=== PATIENT | male | born 1960 | race Caucasian/White ===

== ENCOUNTER 2020-12-04 12:21 | Emergency (ER) | payer OTHER, SELFPAY ==
--- NOTE | 2020-12-04 12:27 | ECG_ITS ---
Test Reason : CHEST PAIN Blood Pressure : / mmHG Vent. Rate : 064 BPM Atrial Rate : 064 BPM P-R Int : 150 ms QRS Dur : 090 ms QT Int : 420 ms P-R-T Axes : 003 -24 002 degrees QTc Int : 433 ms Normal sinus rhythm Normal ECG When compared with ECG of 12-MAY-2002 03:02, No significant change was found Referred By: Boy Yi Electronically Signed By:TABBY GARRIDO
--- NOTE | 2020-12-04 12:42 | ED_ITS ---
HPI - Chest Pain General Chief Complaint: Chest Pain Stated Complaint: chest pain Time Seen by Provider: 12/04/20 12:41 Source: patient Mode of arrival: ambulatory Limitations: no limitations History of Present Illness HPI narrative: 60-year-old male with a past medical history depression and high cholesterol here with complaints of chest pain since last night. He tells me he has had intermittent episodes of chest pain which occurred at rest and are not associated with any shortness of breath, cough, dizziness, diaphoresis or nausea. He tells me it feels like a tickle or pension the left side of his chest which occurs for several seconds and then self-resolved. It is associated with some anxiety. Patient may get several episodes last night around 10:00 o'clock and the continued for about 2 hours he was able to fall sleep. This morning when he woke up he noticed additional episodes and that is when he brought himself to the emergency department. MD complaint: chest pain Onset (ago): hour(s) (>24 hrs) Timing of current episode: episodic Onset: during rest Pain location: left chest Pain radiation: none Severity: mild Quality: other ( tickle pinch ) Relieving factors: nothing Exacerbating factors: nothing Treatment prior to arrival: none Related Data Previous Rx's Medication Instructions Recorded atorvastatin 20 mg tablet 20 mg PO BEDTIME 90 Days #90 tab 09/10/20 citalopram 20 mg tablet 20 mg PO DAILY #30 cap 11/20/20 lorazepam 0.5 mg PO TID PRN #10 tab 12/04/20 Allergies Allergy/AdvReac Type Severity Reaction Status Date / Time No Known Allergies Allergy Unverified 07/30/20 16:42 [No Known Allergies*] Review of Systems Review of Systems: Yes all other systems are reviewed and are negative Constitutional: Constitutional: Reports no additional constitutional complaints, Denies body ache(s), Denies chills, Denies fever(s), Denies head ache(s) and Denies weakness Eyes: Eyes: Reports no additional eye complaints and Denies change in vision ENT: Reports system reviewed and no additional complaints, except as documented, Denies dizziness, Denies headache(s), Denies nasal congestion, Denies nasal discharge and Denies neck pain Cardiovascular: Cardiovascular: Reports no additional cardiovascular complaints, Reports chest pain, Denies leg edema and Denies dyspnea Respiratory: Respiratory: Reports no additional respiratory complaints, Denies cough and Denies dyspnea Gastrointestinal: Gastrointestinal: Reports no additional gastrointestinal complaints, Denies abdominal pain, Denies diarrhea, Denies nausea and Denies vomiting Genitourinary: Genitourinary: Denies urinary incontinence Musculoskeletal: Musculoskeletal: Reports no additional musculoskeletal complaints, Denies back pain, Denies arthralgias, Denies joint swelling, Denies neck pain, Denies numbness and Denies tingling Integumentary/Breasts: Skin/Breast: Reports system reviewed and no additional complaints, except as docu and Denies rash Neurologic: Reports system reviewed and no additional complaints, except as documented, Denies Abnormal speech present, Denies dizziness, Denies head ache(s), Denies numbness, Denies tingling and Denies weakness Psychiatric: Psychiatric: Reports anxiety PMFSH Past Medical History Attestation statement: The following information was validated with the patient. Source: old records reviewed and nursing notes reviewed Medical History (Updated 12/04/20 @ 14:39 by Izzy Bolanos NP) Depression High cholesterol Social History Social History Alcohol intake: never Physical Exam Vital Signs: Vital Signs: Last Vital Signs Temp 98.8 F 12/04/20 13:31 Pulse 54 12/04/20 13:31 Resp 22 H 12/04/20 13:31 BP 133/76 12/04/20 13:31 Pulse Ox 95 12/04/20 13:31 Const: General: cooperative, healthy appearing, comfortable and no acute distress Orientation/consciousness: patient oriented x3 Limitations: no limitations HENMT: Head: Yes normal to inspection Ears: hearing grossly normal bilaterally General nose exam: Normal external nose present Face and sinus: Yes normal facial exam Mouth: Normal oral and palatal mucosa present Throat: Yes posterior oropharynx normal Eyes: General: appearance normal, both eyes and all related structures Pupils: Equal, round and reactive pupils present Neck: Neck: Yes normal visual inspection Chest: Chest palpation & inspection: normal inspection of the chest Resp: Effort & Inspection: normal respiratory effort Auscultation: clear to auscultation bilaterally Cardio: Rate: regular rate Rhythm: regular rhythm Peripheral pulses: Peripheral pulses 2+ throughout GI: Inspection: Yes normal to inspection Palpation (GI): Soft to palpation and nontender Auscultation: normal bowel sounds Back/Spine/Pelvis: Thoracic/Lumbar Spine: thoracic and lumbar spine normal to inspection Skin: General skin exam: no rashes or lesions noted Neuro: General: patient oriented x3, no focal motor deficits and normal sensation to monofilament Cranial nerves: Yes Equal, round and reactive p upils present Cognition (Neuro): normal cognition Speech: No Abnormal speech present Gait exam (Neuro): Normal gait present Motor exam (neuro): 5/5 motor strength present throughout Extrem: General: Yes normal to inspection Course Course Course Narrative: 60-year-old male with a past medical history of hyperlipidemia and depression here with complaints of intermittent chest pain which occurs at rest since last night. No other associated symptoms. Will check labs including troponin, EKG, chest x-ray. 1440-Labs including troponim , labs unremarkable. CXR and EKG unremarkable. Improved with IV ativan. Reviewed worrisome signs/symptom with patient and when to return to ED. Comfortable with discharge home. MDM - Chest Pain MDM Narrative Medical decision making narrative: ACS, PE, pneumonia, anxiety Less likely ACS with symptoms greater than 24 hours and negative troponin and EKG. Less likely PE with PERC score 0, no hypoxia or tachycardia. Less likely pneumonia with negative chest x-ray, no fever, no cough or SOB Medical Records Data Attestation: I reviewed the patient's medical records. Lab Data Attestation: I reviewed the patient's lab results. Result diagrams: 12/04/20 13:05 12/04/20 13:05 Labs: Lab Results 12/04/20 12/04/20 12/04/20 Range/Units 13:04 13:05 13:05 WBC 5.5 (4.8-10.8) X10*3/uL RBC 4.74 (4.60-5.80) X10*6/uL Hgb 14.9 (14.0-18.0) g/dl Hct 42.5 (42-52) % MCV 89.7 (80-98) fL MCH 31.4 (27.0-33.0) pg MCHC 35.1 (31.0-36.0) g/dl RDW 11.6 (11.0-16.0) % Plt Count 204 (160-400) X10*3/uL MPV 9.7 (9.4-12.4) fL Immature Gran % (Auto) 0.2 (0.0-0.4) % Neut % (Auto) 55.1 (45-73) % Lymph % (Auto) 32.1 (20-40) % Redwood % (Auto) 9.5 (2-11) % Eos % (Auto) 2.6 (0-4) % Baso % (Auto) 0.5 (0-2) % Lymph # (Auto) 1.8 (1.2-4.9) X10*3/uL Redwood # (Auto) 0.5 (0.1-1.2) X10*3/uL Eos # (Auto) 0.1 (0.0-0.4) X10*3/uL Baso # (Auto) 0.0 (0.0-0.2) X10*3/uL Abs Immat Gran (auto) 0.01 (0.00-0.03) X10*3/uL Absolute Neuts (auto) 3.0 (2.0-8.3) X10*3/uL Absolute Nucleated RBC 0.000 (0.0-0.012) X10*3/uL Nucleated RBC % (auto) 0.0 (0.0-0.2) /100WBC Hold Blue Top SEE NOTE Sodium 142 (135-145) mmol/L Potassium 4.1 (3.3-5.1) mmol/l Chloride 105 (96-108) mmol/L Carbon Dioxide 28 (22-29) mmol/L Anion Gap 13 (12-20) BUN 12 (9-16) mg/dL Creatinine 0.97 (0.5-1.4) mg/dL Estim Creat Clear Calc TNP Estimated GFR > 60 Random Glucose 80 (60-115) mg/dL Calcium 9.2 (8.4-10.2) mg/dL Magnesium 2.1 (1.6-2.6) mg/dL Total Bilirubin 0.8 (0.0-1.0) mg/dL Direct Bilirubin 0.3 (0.0-0.5) mg/dL AST 21 (5-37) U/L ALT 20 (0-40) U/L Alkaline Phosphatase 76 (39-117) U/L Troponin I High Sens (<3.5-35.0) ng/L Total Protein 7.0 (6.5-8.0) g/dL Albumin 4.3 (3.5-5.0) g/dL TSH 3.57 (0.32-4.0) uIU/mL 12/04/20 Range/Units 13:05 WBC (4.8-10.8) X10*3/uL RBC (4.60-5.80) X10*6/uL Hgb (14.0-18.0) g/dl Hct (42-52) % MCV (80-98) fL MCH (27.0-33.0) pg MCHC (31.0-36.0) g/dl RDW (11.0-16.0) % Plt Count (160-400) X10*3/uL MPV (9.4-12.4) fL Immature Gran % (Auto) (0.0-0.4) % Neut % (Auto) (45-73) % Lymph % (Auto) (20-40) % Redwood % (Auto) (2-11) % Eos % (Auto) (0-4) % Baso % (Auto) (0-2) % Lymph # (Auto) (1.2-4.9) X10*3/uL Redwood # (Auto) (0.1-1.2) X10*3/uL Eos # (Auto) (0.0-0.4) X10*3/uL Baso # (Auto) (0.0-0.2) X10*3/uL Abs Immat Gran (auto) (0.00-0.03) X10*3/uL Absolute Neuts (auto) (2.0-8.3) X10*3/uL Absolute Nucleated RBC (0.0-0.012) X10*3/uL Nucleated RBC % (auto) (0.0-0.2) /100WBC Hold Blue Top Sodium (135-145) mmol/L Potassium (3.3-5.1) mmol/l Chloride (96-108) mmol/L Carbon Dioxide (22-29) mmol/L Anion Gap (12-20) BUN (9-16) mg/dL Creatinine (0.5-1.4) mg/dL Estim Creat Clear Calc Estimated GFR Random Glucose (60-115) mg/dL Calcium (8.4-10.2) mg/dL Magnesium (1.6-2.6) mg/dL Total Bilirubin (0.0-1.0) mg/dL Direct Bilirubin (0.0-0.5) mg/dL AST (5-37) U/L ALT (0-40) U/L Alkaline Phosphatase (39-117) U/L Troponin I High Sens < 3.5 (<3.5-35.0) ng/L Total Protein (6.5-8.0) g/dL Albumin (3.5-5.0) g/dL TSH (0.32-4.0) uIU/mL Imaging Data Chest x-ray: Attestation: I personally reviewed and interpreted this imaging study as follows: Radiologist's impression: EXAMINATION: XR CHEST CLINICAL INFORMATION: Chest pain COMPARISON: None TECHNIQUE: 2 views of the chest were obtained. FINDINGS: There is no pneumothorax, pleural reaction, or effusion. There is no airspace consolidation or definite groundglass opacity. The costophrenic sulci are clear. The heart is normal in size. The hilar and mediastinal contours are normal. There are mild degenerative changes thoracic spine. XR/XR chest 2V IMPRESSION: Unremarkable examination. ECG Data ECG #1: Attestation: I personally reviewed and interpreted this ECG as follows: ECG interpretation date: 12/04/20 ECG interpretation time: 12:40 Interpretation: Normal sinus rhythm, rate 64, normal pr, normal qrs, normal qt Discharge Plan Discharge Clinical Impression: Atypical chest pain Patient Disposition: Home, Self-Care Instructions: Chest Pain (ED) Additional Instructions: Call your PCP and follow-up in a few days as you may need further evaluation and additional testing Prescriptions: New lorazepam 0.5 mg tablet 0.5 mg PO TID PRN (Reason: anxiety) Qty: 10 RF: 0 No Action atorvastatin 20 mg tablet 20 mg PO BEDTIME 90 Days Qty: 90 RF: 2 citalopram 20 mg tablet 20 mg PO DAILY Qty: 30 RF: 6 Referrals: Eh Rock, [employer] ENGINE[employer] [Primary Care Provider] - 2 days Interventions: ED Discharge Assessment Last Done: 12/04/20 15:05 Discharge Date/Time: 12/04/20 15:05
[2020-12-04 13:16] LABS: MANUAL DIFF FLAG NO
[2020-12-04 13:20] LABS: Basophils Percent Auto 0.5 % (0-2); Eosinophils Absolute Auto 0.1 X10*3/uL (0.0-0.4); Eosinophils Percent Auto 2.6 % (0-4); Hematocrit 42.5 % (42-52); Hemoglobin 14.9 g/dl (14.0-18.0); Imm Gran Abs Auto 0.01 X10*3/uL (0.00-0.03); Imm Gran Pct Auto 0.2 % (0.0-0.4); Lymphocytes Absolute Auto 1.8 X10*3/uL (1.2-4.9); Lymphocytes Percent Auto 32.1 % (20-40); Mean Corpuscular HGB Conc 35.1 g/dl (31.0-36.0); Mean Corpuscular Hemoglobin 31.4 pg (27.0-33.0); Mean Corpuscular Volume 89.7 fL (80-98); Mean Platelet Volume 9.7 fL (9.4-12.4); Monocytes Absolute Auto 0.5 X10*3/uL (0.1-1.2); Monocytes Percent Auto 9.5 % (2-11); Neutrophils Percent Auto 55.1 % (45-73); Platelet Count 204 X10*3/uL (160-400); Red Blood Count 4.74 X10*6/uL (4.60-5.80); Red Cell Distribution Width 11.6 % (11.0-16.0); White Blood Count 5.5 X10*3/uL (4.8-10.8)
[2020-12-04 13:31] VITALS: BP 133/76; PULSE 54; PULSE 76; RESP 22; TEMP 37.1; O2SAT 95
[2020-12-04] MEDS: LORazepam 2 MG/ML VIAL 0.5 MG IVPUSH (13:31)
[2020-12-04 13:52] LABS: Alanine Aminotransferase 20 U/L (0-40); Albumin Level 4.3 g/dL (3.5-5.0); Alkaline Phosphatase 76 U/L (39-117); Anion Gap 13 (12-20); Aspartate Amino Transferase 21 U/L (5-37); Bilirubin Direct 0.3 mg/dL (0.0-0.5); Bilirubin Total 0.8 mg/dL (0.0-1.0); Blood Urea Nitrogen 12 mg/dL (9-16); Calcium 9.2 mg/dL (8.4-10.2); Carbon Dioxide 28 mmol/L (22-29); Chloride 105 mmol/L (96-108); Estimated Glomerular Filt Rate > 60; Glucose Random 80 mg/dL (60-115); Magnesium 2.1 mg/dL (1.6-2.6); Potassium 4.1 mmol/l (3.3-5.1); Sodium 142 mmol/L (135-145)
[2020-12-04 13:55] LABS: Troponin-I High Sensitivity < 3.5 ng/L (<3.5-35.0)
[2020-12-04 14:14] LABS: Thyroid Stimulating Hormone 3.57 uIU/mL (0.32-4.0)
== END 2020-12-04 15:05 | disposition home or self-care (01) ==
PROVIDERS: Nurse Practitioner Family; Emergency Provider Internal Medicine; PCP Nurse Practitioner Family
DX: R07.89 Other chest pain (principal); E78.00 Pure hypercholesterolemia, unspecified; Z79.899 Other long term (current) drug therapy
CPT/HCPCS: 36415; 71046; 80048; 80076; 83735; 84443; 84484; 85025; 93005; 99284; J2060

== ENCOUNTER → 2021-05-06 10:11 | Outpatient (BNVA) | payer OTHER, SELFPAY | PROVIDERS: PCP Nurse Practitioner Family; Referring Provider Nurse Practitioner Family; Visit Provider Internal Medicine Gastroenterology | DX: Z01.818 Encounter for other preprocedural examination (principal) | CPT/HCPCS: 99212 ==

== ENCOUNTER 2021-08-24 06:27 | Day surgery (SDC) | payer OTHER, SELFPAY ==
[2021-08-17 10:57] VITALS: BMI 24.9
--- NOTE | 2021-08-20 09:57 | HO.ANESPROP2 ---
Documented by User: Destiny Ward NP 08/20/21 09:57 HPI - Anesthesia Eval Consult details Narrative: 60yo M for Colonoscopy [facility] Active Problems Active Problems: All Active Problems (Updated 05/06/21 @ 11:09 by Arron Sadler MD) Colon cancer screening (Acute) Past Medical History Medical History Depression High cholesterol Surgical History Surgical History H/O colonoscopy Social History Social History (Updated 05/06/21 @ 10:53 by Andreina Garcia) Alcohol intake: never Patient Tobacco Use Status: Never used Tobacco Use of substances other than those prescribed or required for medical reasons: No Advance Directives Information Provided: Yes (informational brochure sent to patient) Advance Directives on File: No Meds Allergies Allergy/AdvReac Type Severity Reaction Status Date / Time No Known Allergies Allergy Verified 05/06/21 10:22 [No Known Allergies*] Exam Exam Date and Time: August 20, 2021 0957 Height,Weight and Vital Signs: Height 5 ft 8 in Weight 74.389 kg Narrative Narrative: EKG 11/2020 Vent. Rate : 064 BPM ? ? Atrial Rate : 064 BPM ?? P-R Int : 150 ms? QRS Dur : 090 ms ? ? QT Int : 420 ms ? ? ? P-R-T Axes : 003 -24 002 degrees ?? QTc Int : 433 ms ? Normal sinus rhythm Normal ECG When compared with ECG of 12-MAY-2002 03:02, No significant change was found Assessment and Plan Assessment Anesthesia Assessment: Chart Reviewed Documented by User: Aleena Tam MD 08/24/21 07:22 [facility] Past Medical History Medical History Depression High cholesterol Functional capacity: independent ambulation Family History Family history of problems with anesthesia: No Surgical History Surgical History H/O colonoscopy History of Problems with Anesthesia: No Social History Social History (Updated 05/06/21 @ 10:53 by Andreina Garcia) Alcohol intake: never Patient Tobacco Use Status: Never used Tobacco Use of substances other than those prescribed or required for medical reasons: No Advance Directives Information Provided: Yes (informational brochure sent to patient) Advance Directives on File: No Meds Allergies Allergy/AdvReac Type Severity Reaction Status Date / Time No Known Allergies Allergy Verified 05/06/21 10:22 [No Known Allergies*] Exam Airway Mallampati Class: II TM Dist: >3cm Neck ROM: Full Heart: RRR Lungs: CTA Assessment and Plan Final Anesthetic Review Family History of Problems with Anesthesia: No History of Problems with Anesthesia: No
[2021-08-24] MEDS: Lactated Ringers 1,000 ML 100 ML IVCONT (06:00)
[2021-08-24 06:45] VITALS: BP 132/74; PULSE 58; RESP 16; TEMP 36.1; O2SAT 99
--- NOTE | 2021-08-24 06:59 | MHC.SHP ---
Pre-Procedural Eval Section A Date of Service: 08/24/21 The patient is an INPATIENT: No The History & Physical has been completed within 30 days and I have reviewed it.: No Section B Chief Complaint: screening Details of Present Illness: Colon cancer screening Relevant Family History (Specify if Yes): No Relevant Social History: None Present Medications: see Short Stay Collaborative assessment Medical History: Significant History (Depression High cholesterol) History of Previous Operations: Relevant previous surgery/procedure and date(s) (History of colonoscopy) Allergies: Allergies Allergy/AdvReac Type Severity Reaction Status Date / Time No Known Allergies Allergy Verified 05/06/21 10:22 [No Known Allergies*] Review of Systems Sugical H&P ROS: Negative: Constitution, Cardiovascular, Respiratory and Gastrointestinal Exam Surgical H&P Exam: Normal: HEENT, Normal: Heart, Normal: Lungs and Normal: Abdomen Plan Diagnosis/Plan: Unchanged I have reviewed the history and physical and performed a pertinent physical examination on my patient. No changes have occurred unless specified.
--- NOTE | 2021-08-24 07:00 | W.PM.OPN ---
Operative Note Operative Note Date of Service: 08/24/21 Narrative: Pre-op diagnosis:?Colon cancer screening Post-op diagnosis:?other (Colon polyps, hemorrhoids) Procedure:? COLONOSCOPY TILL CECUM WITH SNARE POLYPECTOMY, SUBMUCOSAL INJECTION Consent: Indications for the procedure and potential complications of bleeding, perforation, reaction to medications and missed diagnosis were discussed with the patient and informed consent was obtained. Instrument: Olympus PCF H 190 L variable stiffness pediatric colonoscope Monitoring: Vital signs and clinical assessment, intermittent blood pressure monitoring, continuous EKG monitoring, Pulse oximetry and Carbon Dioxide monitoring were done throughout the procedure. Colon withdrawl time was 30 minutes. Procedure: The patient was placed in the left lateral decubitis position and pre-procedure medications were administered. After a digital rectal examination of the ano-rectum, the video colonoscope was inserted into the rectum and advanced through the colon to the cecum. The colonoscope was slowly withdrawn in a retrograde panoramic fashion and the colon mucosa was carefully examined including a retroflexed view of the rectum. Findings and interventions are described below. Procedure Difficulty: Without difficulty Findings: Terminal Ileum: Not evaluated Cecum:? Normal Ascending Colon:? Two 2 to 2.5 cms flat polyps in the proximal AC raised with 2-3 cc of orise solution and removed with a hot snare.? Polypectomy site was marked with Buffy ink. A 10 mm sessile polyp in distal AC removed with a cold snare. Transverse Colon:? A 2 cms flat polyp at 90 cms raised with 4 cc of for eyes solution and removed with a hot snare.? Polypectomy site was marked with Buffy ink Descending Colon:? Normal Sigmoid Colon:? A 1.5 to 2 cms flat polyp removed with a hot snare. Rectum:? Normal Ano-rectum:? Moderate internal hemorrhoids Colon preparation:? Good? Impression and Post Procedure Diagnosis: Colonoscopy Findings: Five medium to large sized polyps removed Moderate hemorrhoids on retroflexed exam. Plan: Await pathology results Patient has an appointment on 09/09/21 in the GI Clinic with Arron Sadler M.D.. Repeat Colonoscopy interval based on path results - in 1 year if polyps are adenomatous to check polypectomy sites in the right colon.. Above findings were reviewed with the patient and colon polyps handout was given in the discharge area Surgeon:?Arron Sadler MD Anesthesia:?MAC (Dr Sheikh) Was an Multiple Drill Operator used for this Procedure?:?No Multiple Drill Operator:?Georgie Syed Estimated blood loss (mL):?0 Pathology:?other (A. transverse colon polyp at 90 cm with Orise? B. proximal ascending colon polyps with Orise? C. sigmoid colon polyp) Condition:?stable Disposition:?PACU
[2021-08-24 08:30] VITALS: BP 101/70; PULSE 55; RESP 16; TEMP 36.1; O2SAT 96
[2021-08-24 08:48] VITALS: BP 128/73; PULSE 50; RESP 16; TEMP 36.1; O2SAT 97
== END 2021-08-24 09:17 | disposition home or self-care (01) ==
PROVIDERS: PCP Nurse Practitioner Family; Visit Provider Internal Medicine Gastroenterology
PROC: 0DJD8ZZ Inspection of Lower Intestinal Tract, Via Natural or Artificial Opening Endoscopic (ICD-10-PCS; CPT 45378; principal; 2021-08-24 07:30)
DX: Z12.11 Encounter for screening for malignant neoplasm of colon (principal); D12.2 Benign neoplasm of ascending colon; D12.3 Benign neoplasm of transverse colon; K63.5 Polyp of colon; K64.8 Other hemorrhoids; F32.9 Major depressive disorder, single episode, unspecified; E78.00 Pure hypercholesterolemia, unspecified; Z79.899 Other long term (current) drug therapy
CPT/HCPCS: 45385; 45381; 88305

== ENCOUNTER → 2021-09-09 13:09 | Outpatient (BNVA) | payer OTHER, SELFPAY | PROVIDERS: Visit Provider Internal Medicine Gastroenterology ==

== ENCOUNTER → 2022-06-09 08:55 | Outpatient (BNVA) | payer OTHER, SELFPAY | PROVIDERS: PCP Nurse Practitioner Family; Visit Provider Internal Medicine Gastroenterology | DX: Z86.010 Personal history of colon polyps (principal) | CPT/HCPCS: 99212 ==

== ENCOUNTER 2022-07-22 06:10 | Outpatient (REF) | payer OTHER, SELFPAY ==
[2022-07-22 11:23] LABS: MANUAL DIFF FLAG NO
[2022-07-22 11:42] LABS: Basophils Percent Auto 0.7 % (0-2); Eosinophils Absolute Auto 0.1 X10*3/uL (0.0-0.4); Eosinophils Percent Auto 3.4 % (0-4); Hematocrit 45.8 % (42.0-52.0); Hemoglobin 15.8 g/dl (14.0-18.0); Imm Gran Abs Auto 0.01 X10*3/uL (0.00-0.03); Imm Gran Pct Auto 0.2 % (0.0-0.4); Lymphocytes Absolute Auto 1.4 X10*3/uL (1.2-4.9); Lymphocytes Percent Auto 34.6 % (20-40); Mean Corpuscular HGB Conc 34.5 g/dl (31.0-36.0); Mean Corpuscular Hemoglobin 31.2 pg (27.0-33.0); Mean Corpuscular Volume 90.3 fL (80.0-98.0); Mean Platelet Volume 10.4 fL (9.4-12.4); Monocytes Absolute Auto 0.5 X10*3/uL (0.1-1.2); Monocytes Percent Auto 11.5 % (2-11); Neutrophils Absolute Auto 2.1 x10*3/uL (2.0-8.3); Neutrophils Percent Auto 49.6 % (45-73); Platelet Count 211 X10*3/uL (160-400); Red Blood Count 5.07 X10*6/uL (4.60-5.80); Red Cell Distribution Width 11.9 % (11.0-16.0); White Blood Count 4.2 X10*3/uL (4.8-10.8)
[2022-07-22 12:01] LABS: Appearance Urine Clear; Color Urine Yellow; Glucose Urine UA Negative (Negative); Leukocyte Esterase Urine Negative (Negative); Nitrite Urine Negative (Negative); Urine Blood Negative (Negative); Urine Ketones Negative (Negative); Urine Protein Negative (Neg-Trace)
[2022-07-22 12:17] LABS: Alanine Aminotransferase 14 U/L (0-40); Albumin Level 4.2 g/dL (3.5-5.0); Alkaline Phosphatase 74 U/L (39-117); Anion Gap 14 (12-20); Aspartate Amino Transferase 18 U/L (5-37); Bilirubin Total 0.7 mg/dL (0.0-1.0); Blood Urea Nitrogen 16 mg/dL (9-16); Calcium 9.1 mg/dL (8.4-10.2); Carbon Dioxide 27 mmol/L (22-29); Chloride 105 mmol/L (96-108); Cholesterol 218 mg/dL; Estimated Glomerular Filt Rate > 60; Glucose Fasting 84 mg/dL (60-99); HDL Cholesterol 45 mg/dL; LDL Cholesterol Calculated 160 mg/dl; Potassium 4.2 mmol/L (3.3-5.1); Sodium 142 mmol/L (135-145); Total Protein 7.2 g/dL (6.5-8.0); Triglycerides 68 mg/dL
[2022-07-22 12:20] LABS: Prostate Specific Antigen Scr 3.12 ng/mL (<0.05-4.0); TSH reflex Free T4 2.97 uIU/mL (0.32-4.0)
== END 2022-07-22 06:11 | disposition home or self-care (01) ==
LOC: HO.HMGCLDS 06:10
PROVIDERS: PCP Nurse Practitioner Family; Visit Provider Nurse Practitioner Family
DX: Z00.00 Encounter for general adult medical examination without abnormal findings (principal); Z12.5 Encounter for screening for malignant neoplasm of prostate
CPT/HCPCS: 36415; 80053; 80061; 81003; 84153; 84443; 85025

== ENCOUNTER 2022-09-10 11:28 | Outpatient (REF) | payer OTHER, SELFPAY ==
--- NOTE | ~2022-09-10 | XR_ITS ---
EXAMINATION: 1. ABDOMINAL KUB 2. RADIOGRAPHS LUMBAR SPINE CLINICAL INFORMATION: Muscle strain of lower back. Renal calculus. COMPARISON: Renal ultrasound 10/24/2019 TECHNIQUE: AP view of the abdomen and 3 views of the lumbar spine were obtained FINDINGS: No dilated air-filled loops of small bowel noted. There is a moderate stool burden throughout the majority of the colon. No definitive calcific densities project over the expected location of either kidney or ureter. 5 nonrib-bearing lumbar vertebral bodies are visualized. Alignment of the lumbar spine is within normal limits. Lumbar vertebral body heights are maintained. There is moderate to severe narrowing of the L4/L5 and L5/S1 disc space heights. There are mild degenerative changes of the posterior elements of the lower lumbar spine. Sacroiliac joints are symmetric. Metallic clip projects over the left pelvis, possibly external to the patient. XR/XR KUB IMPRESSION: -No renal calculi identified. -Mild to moderate degenerative changes of the lower lumbar spine.
--- NOTE | ~2022-09-10 | XR_ITS ---
EXAMINATION: 1. ABDOMINAL KUB 2. RADIOGRAPHS LUMBAR SPINE CLINICAL INFORMATION: Muscle strain of lower back. Renal calculus. COMPARISON: Renal ultrasound 10/24/2019 TECHNIQUE: AP view of the abdomen and 3 views of the lumbar spine were obtained FINDINGS: No dilated air-filled loops of small bowel noted. There is a moderate stool burden throughout the majority of the colon. No definitive calcific densities project over the expected location of either kidney or ureter. 5 nonrib-bearing lumbar vertebral bodies are visualized. Alignment of the lumbar spine is within normal limits. Lumbar vertebral body heights are maintained. There is moderate to severe narrowing of the L4/L5 and L5/S1 disc space heights. There are mild degenerative changes of the posterior elements of the lower lumbar spine. Sacroiliac joints are symmetric. Metallic clip projects over the left pelvis, possibly external to the patient. XR/XR lumbar spine 2-3V IMPRESSION: -No renal calculi identified. -Mild to moderate degenerative changes of the lower lumbar spine.
== END 2022-09-10 11:29 | disposition home or self-care (01) ==
LOC: HO.HMGCX 11:28
PROVIDERS: PCP Nurse Practitioner Family; Visit Provider Physician Assistant
DX: N20.0 Calculus of kidney (principal); S39.012A Strain of muscle, fascia and tendon of lower back, initial encounter; X58.XXXA Exposure to other specified factors, initial encounter; Y93.9 Activity, unspecified; Y92.9 Unspecified place or not applicable; Y99.8 Other external cause status
CPT/HCPCS: 72100; 74018

== ENCOUNTER 2022-10-21 15:00 | Outpatient (RCR) | payer OTHER, SELFPAY ==
--- NOTE | 2022-10-18 10:07 | MHC.PT.EP ---
[facility] [place] Office [place] Office [place] Office [address] Lexy Freitas [address] [phone] F: [phone] F: [phone] F: [phone] F: [phone] Physical Therapy Plan of Care Date of Evaluation: Date of Surgery: Diagnosis: strain of muscle fascia and tendon of lower back Assessment: Patient is 62 yo male who is referred to PT by Eh WATKINS with Dx of strain of muscle fascia and tendon of lower back. His PT Dx is consistent with MD Dx with mechanical dysfunction in L low back with muscle imbalances L low back and involved L4-S1 L facet joints. His impairments include pain, limited ROM, and antalgic gait. 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 He will benefit from course of skilled PT to address aforementioned impairments and functional limitations to meet goals. Frequency and Duration: The patient will be seen 1x/week for 4 weeks Short Term Goals: 2 weeks Patient demonstrates independence with HEP to self manage symptoms. Patient is able to consistently demonstrate proper posture with lumbar support in sitting without cues. 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 Treatment Plan: Modalities to reduce pain, spasms and effusion. Manual therapy to restore motion and function. Therapeutic exercise to improve strength and flexibility. Neuromuscular re-education for posture and balance. Therapeutic activities to return to functional activities of daily living. Electronically signed by: Mary De Anda, PT, DPT Please sign and return to therapist. Thank you for your referral.
--- NOTE | 2022-10-27 09:06 | MHC.PT.DC ---
[facility] [place] Office [place] Office [place] Office [address] Lexy Freitas [address] [facility] [phone] F: [phone] F: [phone] F: [phone] F: [phone] Physical Therapy Discharge Report Diagnosis: strain of muscle fascia and tendon of lower back Date of Surgery: Date of Evaluation: 10/18/22 Date of Discharge: 10/27/22 Treatments to Date: 2 Cancellations to Date: No Shows to Date: Discharge Status: Independent with HEP Patient Elected to Stop Discharge Summary: Patient called after his last PT visit that he feels he can manage his symptoms on his own and requests discharged from PT. Electronically signed by: Mary De Anda, PT, DPT Please sign and return to therapist. Thank you for your referral.
== END 2022-10-27 09:06 | disposition home or self-care (01) ==
LOC: HO.PTCHIC 15:00
PROVIDERS: PCP Nurse Practitioner Family; Visit Provider Nurse Practitioner Family
DX: S39.012A Strain of muscle, fascia and tendon of lower back, initial encounter (principal)
CPT/HCPCS: 97012; 97110; 97140; 97161

== ENCOUNTER 2022-11-18 07:55 | Day surgery (SDC) | payer OTHER, SELFPAY ==
--- NOTE | 2022-11-17 12:13 | P.CONAN_ITS ---
Documented by User: Destiny Ward NP 11/17/22 12:15 HPI - Anesthesia Eval Consult details Narrative: 62yo M for Colonoscopy PMFSH Active Problems Active Problems: All Active Problems (Updated 09/10/22 @ 11:18 by Chad Carranza PA-C) Colon cancer screening (Acute) History of colon polyps (Acute) Physical exam (Acute) Screening for prostate cancer (Acute) Bradycardia (Acute) Dyslipidemia (Acute) Nephrolithiasis (Acute) Lumbar spine strain (Acute) Past Medical History Medical History (Updated 09/10/22 @ 11:18 by Chad Carranza PA-C) Depression High cholesterol Family History Family history of problems with anesthesia: No Surgical History Surgical History (Updated 11/18/22 @ 08:15 by Danyelle Robles) H/O colonoscopy H/O knee surgery H/O shoulder surgery History of Problems with Anesthesia: No Social History Social History Housing: House Alcohol intake: never Patient Tobacco Use Status: Never used Tobacco e-Cigarette/Vaping Use: Never Used Second Hand Smoke Exposure: No Use of substances other than those prescribed or required for medical reasons: No Are you DNR?: No Advance Directives: No Advance Directives Information Provided: Yes service: No Current occupational status: employed 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 Current occupational exposures/hazards: No Cognitive needs: No Hearing needs: No Vision needs: No Meds Allergies Allergy/AdvReac Type Severity Reaction Status Date / Time No Known Allergies Allergy Verified 11/18/22 08:15 [No Known Allergies*] Exam Exam Date and Time: November 17, 2022 1213 Pertinent Lab Results Pertinent Lab Results: Laboratory Tests 07/22/22 07/22/22 06:44 06:44 WBC 4.2 L RBC 5.07 Hgb 15.8 Hct 45.8 Plt Count 211 Sodium 142 Potassium 4.2 Chloride 105 Carbon Dioxide 27 BUN 16 Creatinine 1.05 Narrative Narrative: EKG 07/2022 SB with PVCs Assessment and Plan Assessment Anesthesia Assessment: Chart Reviewed Final Anesthetic Review Family History of Problems with Anesthesia: No History of Problems with Anesthesia: No Documented by User: Margaret Castillo MD 11/18/22 08:26 [facility] Past Medical History Medical History (Updated 09/10/22 @ 11:18 by Chad Carranza PA-C) Depression High cholesterol Surgical History Surgical History (Updated 11/18/22 @ 08:15 by Danyelle Robles) H/O colonoscopy H/O knee surgery H/O shoulder surgery Social History Social History Housing: House Alcohol intake: never Patient Tobacco Use Status: Never used Tobacco e-Cigarette/Vaping Use: Never Used Second Hand Smoke Exposure: No Use of substances other than those prescribed or required for medical reasons: No Are you DNR?: No Advance Directives: No Advance Directives Information Provided: Yes service: No Current occupational status: employed 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 Current occupational exposures/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: No Cognitive needs: No Hearing needs: No Vision needs: No Meds Allergies Allergy/AdvReac Type Severity Reaction Status Date / Time No Known Allergies Allergy Verified 11/18/22 08:15 [No Known Allergies*] Exam Airway Mallampati Class: II TM Dist: >3cm Neck ROM: Full Heart: rrr Lungs: cta Assessment and Plan Assessment Anesthesia Assessment: Anesthesia Plan Discussed Final Anesthetic Review NPO: Yes ASA Class: II Final Preanesthetic Review: No Changes in Pt Med Stat, Meds/Allgs Chart Reviewed and Consent Obtained/Reviewed Patient Risk: Intermediate Procedure Risk: Intermediate Anesthetic Plan Anesthetic Plan: MAC: Disposition: Standard PACU
[2022-11-18 08:16] VITALS: BMI 24.9
[2022-11-18 08:23] VITALS: BP 144/82; PULSE 53; RESP 16; TEMP 36.3; O2SAT 98
[2022-11-18] MEDS: Lactated Ringers 1,000 ML 100 ML IVCONT (08:37)
--- NOTE | 2022-11-18 09:17 | MHC.SHP ---
Pre-Procedural Eval Section A Date of Service: 11/18/22 The patient is an INPATIENT: No The History & Physical has been completed within 30 days and I have reviewed it.: No Section B Chief Complaint: screening, hx of polyps Details of Present Illness: colon cancer screening, history of colon polyps Relevant Family History (Specify if Yes): No Relevant Social History: None Present Medications: see Short Stay Collaborative assessment Medical History: Significant History (Depression, High cholesterol) History of Previous Operations: Relevant previous surgery/procedure and date(s) ( history of colonoscopy) Allergies: Allergies Allergy/AdvReac Type Severity Reaction Status Date / Time No Known Allergies Allergy Verified 11/18/22 08:15 [No Known Allergies*] Review of Systems Sugical H&P ROS: Negative: Constitution, Cardiovascular, Respiratory and Gastrointestinal Exam Surgical H&P Exam: Normal: Heart, Normal: Lungs, Normal: Extremities and Normal: Abdomen Plan Diagnosis/Plan: Unchanged I have reviewed the history and physical and performed a pertinent physical examination on my patient. No changes have occurred unless specified. Time Spent With Patient Time: Total time managing care of this patient today ____ minutes.
--- NOTE | 2022-11-18 09:25 | PM.OP ---
Brief Operative Note Date of Service: 11/18/22 Pre-op diagnosis: colon cancer screen, history of colon polyps Post-op diagnosis: other ( COLON POLYPS, DIVERTICULOSIS, HEMORRHOIDS) Procedure: COLONOSCOPY TILL CECUM WITH BIOPSIES, SNARE POLYPECTOMY, SUBMUCOSAL INJECTION AND HEMOCLIP PLACEMENT Surgeon: Arron Sadler MD Anesthesia: MAC Was an Medical Records Coder used for this Procedure?: Yes Medical Records Coder: Luis Alberto Culver Estimated blood loss (mL): 0 Pathology: other (A- ASCENDING COLON POLYP B- DISTAL ASCENDING COLON POLYP AT 60 CM C- TRANSVERSE COLON POLYP) Condition: stable Disposition: PACU
--- NOTE | 2022-11-18 09:28 | W.PM.OPN ---
Operative Note Operative Note Date of Service: 11/18/22 Narrative: Pre-op diagnosis: colon cancer screen, history of colon polyps Post-op diagnosis:?other ( COLON POLYPS, DIVERTICULOSIS,? HEMORRHOIDS) Surgeon: Arron Sadler MD Anesthesia:?MAC COLONOSCOPY TILL CECUM WITH BIOPSIES, SNARE POLYPECTOMY, SUBMUCOSAL INJECTION AND HEMOCLIP PLACEMENT Consent: Indications for the procedure and potential complications of bleeding, perforation, reaction to medications and missed diagnosis were discussed with the patient and informed consent was obtained. Instrument: Olympus PCF H 190 L variable stiffness pediatric colonoscope Monitoring: Vital signs and clinical assessment, intermittent blood pressure monitoring, continuous EKG monitoring, Pulse oximetry and Carbon Dioxide monitoring were done throughout the procedure. Colon withdrawl time was 35 minutes. Procedure: The patient was placed in the left lateral decubitis position and pre-procedure medications were administered. After a digital rectal examination of the ano-rectum, the video colonoscope was inserted into the rectum and advanced through the colon to the cecum. The colonoscope was slowly withdrawn in a retrograde panoramic fashion and the colon mucosa was carefully examined including a retroflexed view of the rectum. Findings and interventions are described below. Procedure Difficulty: Without difficulty Findings: Terminal Ileum: Not evaluated Cecum: Normal Ascending Colon: Three to four 5 to 10 mm polypoidal nodules noted at the site of past polypectomy in the proximal AC removed with a cold bx and a hot snare. Polypectomy site was closed with 1 hemoclip A 2 cms flat polyp in the distal AC at 60 cms - raised with 5 cc of normal saline and removed with a hot snare. Polypectomy site was marked with Buffy ink Transverse Colon: A 10-12 mm sessile polyp - removed with a hot snare Descending Colon: Normal Sigmoid Colon: Moderate diverticulosis Rectum: Normal Ano-rectum: Moderate internal hemorrhoids Colon preparation: Good Impression and Post Procedure Diagnosis: Colonoscopy Findings: Two medium sized polyps removed Three to four 5 to 10 mm polypoidal nodules noted at the site of past polypectomy in the proximal AC removed with a cold bx and a hot snare. Moderate diverticulosis seen in the left colon Moderate hemorrhoids on retroflexed exam. Plan: Await pathology results Patient has an appointment on 12/08/22 in the [facility] with Arron Sadler M.D.. Repeat Colonoscopy interval based on path results - in 2 years if polyps are adenomatous and due to a hx of multiple colon polyps Above findings were reviewed with the patient and colon polyps and diverticulosis handouts were given in the discharge area
[2022-11-18 10:17] VITALS: BP 108/66; PULSE 56; RESP 16; TEMP 36.4; O2SAT 98
[2022-11-18 10:32] VITALS: BP 121/74; PULSE 52; RESP 16; TEMP 36.7; O2SAT 99
== END 2022-11-18 10:57 | disposition home or self-care (01) ==
PROVIDERS: PCP Nurse Practitioner Family; Visit Provider Internal Medicine Gastroenterology
PROC: 0DJD8ZZ Inspection of Lower Intestinal Tract, Via Natural or Artificial Opening Endoscopic (ICD-10-PCS; CPT 45378; principal; 2022-11-18 09:10)
DX: Z12.11 Encounter for screening for malignant neoplasm of colon (principal); Z86.010 Personal history of colon polyps; D12.2 Benign neoplasm of ascending colon; D12.3 Benign neoplasm of transverse colon; K57.30 Diverticulosis of large intestine without perforation or abscess without bleeding; K64.8 Other hemorrhoids; E78.00 Pure hypercholesterolemia, unspecified; F32.A Depression, unspecified; Z79.899 Other long term (current) drug therapy
CPT/HCPCS: 45385; 45380; 45381; 88305

== ENCOUNTER → 2022-12-08 07:46 | Outpatient (BNVA) | payer OTHER, SELFPAY | PROVIDERS: PCP Nurse Practitioner Family; Referring Provider Nurse Practitioner Family; Visit Provider Internal Medicine Gastroenterology | DX: Z12.11 Encounter for screening for malignant neoplasm of colon (principal); Z86.010 Personal history of colon polyps | CPT/HCPCS: 99212 ==

== ENCOUNTER 2022-12-22 15:19 | Outpatient (REF) | payer OTHER, SELFPAY ==
--- NOTE | ~2022-12-22 | MR_ITS ---
EXAMINATION: MR LUMBAR SPINE WITHOUT CONTRAST CLINICAL INFORMATION: 62-year-old with low back pain. Self-reported shooting pain from mid back to left side. COMPARISON: None TECHNIQUE: MRI of the lumbar spine was obtained using routine sequences without contrast. FINDINGS: CORONAL ALIGNMENT: Normal. SAGITTAL ALIGNMENT: Normal. LUMBOSACRAL JUNCTION: Normal. There are 5 mln-njz-zgqcllf lumbar-type vertebral bodies. VERTEBRAL BODIES: Well maintained with normal height. No compression fractures, anomalies or other deformities. DISC SPACES AND ENDPLATES: Cspmdttn-zi-nwyypz disc space height loss asymmetric to the right at L5-S1 with disc desiccation, Schmorl's nodes and spondylosis. Zgohiuzc-ne-qoyomq disc space height loss asymmetric to the left at L4-L5, with intradiscal degenerative signal changes, tiny Schmorl's nodes and spondylosis. Intradiscal T2 hyperintensity on the left side of the intervertebral disc at this level is likely degenerative. The remaining lumbar intervertebral discs demonstrate normal height and signal. There is a Schmorl's node along the superior endplate of L2 and there is a Schmorl's node along the inferior endplate of T12. There is minor spondylosis at L1-L2 and L2-L3. SPINAL CANAL: No abnormal developmental findings. BONE MARROW: There are type I, edematous degenerative endplate marrow signal changes seen on the left at L4-L5 and to a lesser degree on the right at L5-S1, with type II marrow signal changes at L5-S1 on the right. Minimal type II marrow signal changes at L4-L5 on the left. CONUS MEDULLARIS: Terminates at T12. INTRADURAL NERVE ROOTS: Within normal limits. L5-S1: Mild disc bulging noted with a right paravertebral/posterolateral disc osteophyte complex. No thecal sac encroachment or S1 nerve root impingement. Mild facet hypertrophic changes on the right with no significant spinal canal stenosis. Mild foraminal narrowing noted on the right with disc osteophyte complex abutting the exiting right L5 nerve root. L4-L5: Disc bulging noted with left paravertebral/posterolateral disc osteophyte complex, with mild flattening of the ventral dural sac. Opby-pi-ibvhbbee facet arthropathy is noted, left more than right with bilateral facet joint effusions. No significant central spinal canal stenosis. There is crowding of the subarticular zone on the left with some encroachment on the traversing left L5 nerve root. Mild foraminal narrowing is noted on the left without neural impingement. L3-L4: Small bilateral foraminal/extraforaminal disc protrusions are noted, without neural impingement. Mild facet arthropathy noted bilaterally without significant canal or neural foraminal stenosis. L2-L3: No significant disc bulge. Very small inferior foraminal/subarticular disc protrusion without neural impingement. No significant facet arthrosis, canal or neural foraminal stenosis. L1-L2: Minimal right paramedian disc protrusion. No significant facet arthrosis, canal or neural foraminal stenosis. PARAVERTEBRAL AND INCLUDED EXTRASPINAL SOFT TISSUES: Nonspecific soft tissue edema noted along the posterior aspect of the posterior elements of L5 of indeterminate significance. The visualized paravertebral soft tissues are within normal limits. There is a 1.2 cm simple-appearing exophytic cortical cyst arising from the lower pole of the right kidney. Limited evaluation.?No specific follow up recommended based on the current ACR Best Practice Guidelines. MR/MR lumbar spine wo con IMPRESSION: 1. Discogenic degenerative changes primarily at L4-L5 and L5-S1 as described above, with disc bulging and disc osteophyte complexes at these levels with no significant central spinal canal stenosis. Mild narrowing of the left subarticular zone at L4-L5 is noted with slight encroachment on the traversing left L5 nerve root. 2. Mild degrees of neural foraminal narrowing on the left at L4-L5 and on the right at L5-S1 with disc osteophyte complex abutting the exiting right L5 nerve root. 3. Multilevel facet arthropathy as described above. 4. Mild nonspecific soft tissue edema posterior to the posterior elements of L5 of uncertain significance.
== END 2022-12-22 15:20 | disposition home or self-care (01) ==
LOC: HO.MRI 15:19
PROVIDERS: Visit Provider Nurse Practitioner Family
DX: M54.50 Low back pain, unspecified (principal); G89.29 Other chronic pain
CPT/HCPCS: 72148

== ENCOUNTER 2023-11-24 07:31 | Outpatient (REF) | payer OTHER, SELFPAY ==
[2023-11-24 11:31] LABS: MANUAL DIFF FLAG NO
[2023-11-24 11:38] LABS: Appearance Urine Clear; Color Urine Yellow; Glucose Urine UA Negative (Negative); Leukocyte Esterase Urine Negative (Negative); Nitrite Urine Negative (Negative); Urine Blood Negative (Negative); Urine Ketones Negative (Negative); Urine Protein Negative (Neg-Trace)
[2023-11-24 11:39] LABS: Basophils Percent Auto 0.8 % (0-2); Eosinophils Absolute Auto 0.1 X10*3/uL (0.0-0.4); Eosinophils Percent Auto 2.8 % (0-4); Hematocrit 46.5 % (42.0-52.0); Lymphocytes Absolute Auto 1.5 X10*3/uL (1.2-4.9); Mean Corpuscular HGB Conc 34.4 g/dl (31.0-36.0); Mean Corpuscular Volume 90.1 fL (80.0-98.0); Mean Platelet Volume 10.3 fL (9.4-12.4); Monocytes Absolute Auto 0.4 X10*3/uL (0.1-1.2); Monocytes Percent Auto 10.3 % (2-11); Neutrophils Absolute Auto 1.9 x10*3/uL (2.0-8.3); Neutrophils Percent Auto 48.1 % (45-73); Platelet Count 209 X10*3/uL (160-400); Red Blood Count 5.16 X10*6/uL (4.60-5.80); Red Cell Distribution Width 11.7 % (11.0-16.0)
[2023-11-24 12:32] LABS: Alanine Aminotransferase 16 U/L (0-40); Albumin Level 4.4 g/dL (3.5-5.0); Alkaline Phosphatase 71 U/L (39-117); Anion Gap 12 (12-20); Aspartate Amino Transferase 19 U/L (5-37); Bilirubin Total 0.8 mg/dL (0.0-1.0); Blood Urea Nitrogen 17 mg/dL (9-16); Calcium 9.5 mg/dL (8.4-10.2); Carbon Dioxide 27 mmol/L (22-29); Chloride 105 mmol/L (96-108); Cholesterol 153 mg/dL (<200); Estimated Glomerular Filt Rate > 60; Glucose Fasting 77 mg/dL (60-99); HDL Cholesterol 34 mg/dL (>40); LDL Cholesterol Calculated 108 mg/dL (<100); Prostate Specific Antigen Scr 1.16 ng/mL (<0.05-4.0); Sodium 140 mmol/L (135-145); Total Protein 7.6 g/dL (6.5-8.0); Triglycerides 56 mg/dL (<150)
[2023-11-24 12:42] LABS: TSH reflex Free T4 3.58 uIU/mL (0.32-4.0)
== END 2023-11-24 07:32 | disposition home or self-care (01) ==
LOC: HO.HMGCLDS 07:31
PROVIDERS: PCP Nurse Practitioner Family; Visit Provider Nurse Practitioner Family
DX: Z00.00 Encounter for general adult medical examination without abnormal findings (principal); Z13.220 Encounter for screening for lipoid disorders; Z13.29 Encounter for screening for other suspected endocrine disorder; Z12.5 Encounter for screening for malignant neoplasm of prostate
CPT/HCPCS: 36415; 80053; 80061; 81003; 84153; 84443; 85025

== ENCOUNTER → 2023-12-07 07:46 | Outpatient (BNVA) | payer OTHER, SELFPAY | PROVIDERS: PCP Nurse Practitioner Family; Visit Provider Internal Medicine Gastroenterology ==

== ENCOUNTER 2024-01-11 06:08 | Outpatient (REF) | payer OTHER, SELFPAY ==
[2024-01-11 10:36] LABS: MANUAL DIFF FLAG NO
[2024-01-11 10:53] LABS: Basophils Percent Auto 0.9 % (0-2); Eosinophils Absolute Auto 0.2 X10*3/uL (0.0-0.4); Eosinophils Percent Auto 4.9 % (0-4); Hematocrit 45.5 % (42.0-52.0); Hemoglobin 15.4 g/dl (14.0-18.0); Imm Gran Abs Auto 0.01 X10*3/uL (0.00-0.03); Imm Gran Pct Auto 0.2 % (0.0-0.4); Lymphocytes Absolute Auto 1.5 X10*3/uL (1.2-4.9); Lymphocytes Percent Auto 33.8 % (20-40); Mean Corpuscular HGB Conc 33.8 g/dl (31.0-36.0); Mean Corpuscular Hemoglobin 30.6 pg (27.0-33.0); Mean Corpuscular Volume 90.5 fL (80.0-98.0); Mean Platelet Volume 10.4 fL (9.4-12.4); Monocytes Absolute Auto 0.6 X10*3/uL (0.1-1.2); Neutrophils Absolute Auto 2.1 x10*3/uL (2.0-8.3); Neutrophils Percent Auto 47.2 % (45-73); Platelet Count 209 X10*3/uL (160-400); Red Blood Count 5.03 X10*6/uL (4.60-5.80); Red Cell Distribution Width 12.1 % (11.0-16.0); White Blood Count 4.5 X10*3/uL (4.8-10.8)
== END 2024-01-11 06:09 | disposition home or self-care (01) ==
LOC: HO.HMGCLDS 06:08
PROVIDERS: PCP Nurse Practitioner Family; Visit Provider Nurse Practitioner Family
DX: D72.819 Decreased white blood cell count, unspecified (principal)
CPT/HCPCS: 36415; 85025

== ENCOUNTER 2024-05-29 08:09 | Outpatient (AMB) | payer OTHER, SELFPAY ==
--- NOTE | 2024-05-29 08:21 | A.OFFPC_ITS ---
Vital Signs 05/29/24 08:35 Height 5 ft 8 in Weight 152 lb 6 oz BMI 23.2 BP 118/80 Blood Pressure Location Rt brachial Position Sitting Pulse 69 Pulse Source Pulse Oximeter Pulse Oximetry (%) 96 Oxygen Delivery Method Room Air Intake Visit Reasons: Annual PE Intake Note: Patient here for physical exam. Colon: has one booked for sept Allergies No Known Allergies [No Known Allergies*] Allergy (Verified 05/29/24 09:10) Medication List - Last Reconciled 05/29/24 by LANETTE Lombardo No Known Home Meds Tobacco use date assessed: 05/29/24 Fall risk assessment: No Falls in past year Last assessed Fall Risk: 05/29/24 Dental Screening Dental Screen Date: 05/29/24 Did you have a dental visit in the last 12 months?: Yes Did you have a dental problem in the last 6 months where you did not have access to dental care?: No Was dental information given to patient?: Patient has dentist HPI Annual PE HPI Details Pt is here for a PE. Will order labs. Colon screen is up to date. PSA is up to date. Pt reports increased anxiety/depression. He has been on citalopram in the past which worked well. Will restart this. Denies any SI and HI. Refuses therapist. 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 1. Little interest or pleasure in doing things: nearly every day 2. Feeling down, depressed, or hopeless: nearly every day 3. Trouble falling or staying asleep, or sleeping too much: nearly every day 4. Feeling tired or having little energy: more than half the days 5. Poor appetite or overeating: not at all 6. Feeling bad about yourself - or that you are a failure or have let yourself or your family down: more than half the days 7. Trouble concentrating on things, such as reading the newspaper or watching television: not at all 8. Moving or speaking so slowly that other people could have noticed. Or the opposite - being so fidgety or restless that you have been moving around a lot more than usual: not at all 9. Thoughts that you would be better off or of hurting yourself in some way: more than half the days Total score: 15 Depression Screening Interpretation: Positive (denies any si or hi, wants to retry citalopram) Depression Screening Follow-up: Existing condition Depression Screening Done: Yes 94614 - PHQ-9 Billing: Yes Source: Developed by Drs. Carlos Skinner, Brenda Haynes, Arsenio Pineda and colleagues, with an educational matthew from [employer]. Thrive Questionnaire Date Thrive assessed: 05/29/24 I am a: Patient What is your living situation today?: I have a steady place to live Within the past 12 months, did the food you bought not last and you didn't have the money to get more?: Never true Within the past 12 months, did you worry whether your food would run out before you got money to buy more?: Never true Do you have trouble paying for medicines?: No Do you have trouble getting transportation to medical appointments?: No Do you have trouble paying your heating and electricity bill?: No Do you have trouble taking care of your child, family member or friend?: No Do you have trouble with day-to-day activities such as bathing, preparing meals, shopping, managing finances, etc.?: No Are you currently unemployed and looking for a job?: No Are you interested in more education?: No Please select the resources that you would like help with: Housing/Fpc Currently or been in a relationship where the following occur: No concerns reported THRIVE Score: 0 AUDIT C Alcohol Use Questionnaire (AUDIT-C) 1. How often do you have a drink containing alcohol?: Never Total Score: 0 CARLO-7 AMB Questionnaire CARLO-7 Date CARLO - 7 assessed: 05/29/24 Feeling nervous, anxious, or on edge: 1 = Several days Not being able to stop or control worryin = Several days Worrying too much about different things: 1 = Several days Trouble relaxin = Several days Being so restless that it is hard to sit still: 0 = Not at all Becoming easily annoyed or irritable: 3 = Nearly every day Feeling afraid as if something awful might happen: 0 = Not at all Total CARLO-7 score (0-4 normal; 5-9 mild; 10-14 moderate; 15-21 severe): 7 Source: Developed by Drs. Carlos Skinner, Brenda Haynes, Arsenio Pineda and colleagues, with an educational matthew from [employer]. CARLO-7 Assessment Billing CARLO-7 Assessment Tool: CARLO-7 Assessment 87266 Review of Systems Const Denies chills and Denies fever(s) Eyes Denies blurry vision ENT Denies vertigo, Denies dizziness and Denies sore throat Card Denies chest pain at rest, Denies chest pain with activity, Denies diaphoresis, Denies dyspnea and Denies dyspnea on exertion Resp Denies cough, Denies dyspnea, Denies dyspnea on exertion and Denies wheezing GI Denies abdominal pain, Denies melena, Denies hematochezia, Denies constipation, Denies diarrhea and Denies loose stools Denies hematuria Musc Denies numbness and Denies tingling Skin/Breast Denies lesions Neuro Denies vertigo, Denies dizziness, Denies numbness and Denies tingling Psych Reports anxiety, Reports depression, Denies homicidal ideation, Denies suicidal ideation and Denies other (substance abuse) Aller/Immun Denies wheezing Physical exam (Primary Care) Vital Signs: Last Vital Signs Pulse 69 05/29/24 08:35 BP 118/80 05/29/24 08:35 Pulse Ox 96 05/29/24 08:35 Oxygen Delivery Method Room Air 05/29/24 08:35 BMI result Body Mass Index 23.2 Tobacco/Smoking Status: Tobacco use Status Tobacco use date assessed 05/29/24 05/29/24 08:37 Patient Tobacco Use Status Never used Tobacco 05/29/24 08:22 e-Cigarette/Vaping Use Never Used 05/29/24 08:22 PHQ-9: PHQ-9 Score PHQ-9: Total score 15 05/29/24 08:54 Depression Screening Interpretation: Positive (denies any si or hi, wants to retry citalopram) Depression Screening Follow-up: Existing condition Thrive Assessment: Date of Thrive Assessment Date Thrive assessed 05/29/24 05/29/24 08:22 Currently or been in a relationship where the following occur: No concerns reported Const General: cooperative Nutritional Appearance: well nourished Orientation/consciousness: patient oriented x3 HENMT Head: Yes normal to inspection, Yes normocephalic and Yes atraumatic Ears: TM's normal bilaterally Eyes General: appearance normal, both eyes and all related structures Alignment and Position: alignment normal and position normal Neck Neck: Yes normal visual inspection and Yes no lymphadenopathy Thyroid: Thyroid normal Resp Effort & Inspection: normal respiratory effort Auscultation: clear to auscultation bilaterally Cardio Rate: regular rate Rhythm: regular rhythm Heart sounds: S1 normal heart sound present, S2 normal heart sound present and no murmurs GI Palpation (GI): Soft to palpation and nontender Auscultation: normal bowel sounds Male General Exam: Yes normal external exam Penis: normal penis Scrotum: scrotum normal, testes descended bilaterally and no inguinal hernias Testes: no testicular mass Skin Rashes: no rashes Neuro General: patient oriented x3, moves all extremities, no focal motor deficits and deep tendon reflexes 2+ bilaterally Romberg Test: Negative Psych Appearance: grossly normal Mental Status: mental status grossly normal Speech and movement: Normal speech and movement present Affect: normal affect Attitude: cooperative Thought process: Normal thought process present Thought content: Normal thought content present Insight: Good insight present (Psych) Judgement: Good judgement present (Psych) Assessment and Plan Assessment & Plan (1) Physical exam: Code(s): Z00.00 - Encounter for general adult medical examination without abnormal findings Plan: Labs ordered (2) Screening for prostate cancer: Code(s): Z12.5 - Encounter for screening for malignant neoplasm of prostate Plan: PSA ordered (3) Depression: Code(s): F32.9 - Major depressive disorder, single episode, unspecified Plan: Starting citalopram, refuses therapist. Pt knows to call me with further questions or concerns (4) Anxiety: Code(s): F41.9 - Anxiety disorder, unspecified Plan: Seeing citalopram, refuses therapist Plan The patient agreed to the use of a medical collections specialist for this encounter. Scribed for LANETTE Zhang by Elizabeth Clark medical collections specialist, on 05/29/2024 at 08:50 EST. Orders: Orders Complete Blood Count Auto Diff Today Z00.00 - Encounter for general adult medical examination without abnormal findings Comprehensive [place]. Panel Fast Today Z00.00 - Encounter for general adult medical examination without abnormal findings Prostate Specific Antigen Scr Today Z12.5 - Encounter for screening for malignant neoplasm of prostate TSH reflex Free T4 Today Z00.00 - Encounter for general adult medical examination without abnormal findings UA CC w/rflx Micro + Cult Today Z00.00 - Encounter for general adult medical examination without abnormal findings Lipid Panel Today Z00.00 - Encounter for general adult medical examination without abnormal findings Medications: New citalopram 20 mg PO DAILY 90 days 90 tabs 0RF Coding Level of Care Code Est Pt Prev Care >65y(28717) Diagnoses Physical exam Z00.00 Screening for prostate cancer Z12.5 Depression F32.9 Anxiety F41.9 Additional Codes CARLO-7 Assessment Billing - CARLO-7 Assessment Tool: CARLO-7 Assessment 16149 ([id number])
[2024-05-29 08:35] VITALS: BP 118/80; PULSE 69; O2SAT 96; BMI 23.2
== END 2024-05-29 09:07 | disposition home or self-care (01) ==
PROVIDERS: PCP Nurse Practitioner Family; Visit Provider Nurse Practitioner Family
DX: Z00.00 Encounter for general adult medical examination without abnormal findings (principal); Z12.5 Encounter for screening for malignant neoplasm of prostate; F32.9 Major depressive disorder, single episode, unspecified; F41.9 Anxiety disorder, unspecified
CPT/HCPCS: 99397

== ENCOUNTER 2024-05-29 09:08 | Outpatient (REF) | payer OTHER, SELFPAY ==
[2024-05-29 10:19] LABS: MANUAL DIFF FLAG NO
[2024-05-29 10:27] LABS: Eosinophils Absolute Auto 0.1 X10*3/uL (0.0-0.4); Hematocrit 44.8 % (42.0-52.0); Hemoglobin 15.5 g/dl (14.0-18.0); Imm Gran Abs Auto 0.01 X10*3/uL (0.00-0.03); Imm Gran Pct Auto 0.2 % (0.0-0.4); Lymphocytes Absolute Auto 1.3 X10*3/uL (1.2-4.9); Mean Corpuscular HGB Conc 34.6 g/dl (31.0-36.0); Mean Corpuscular Hemoglobin 30.9 pg (27.0-33.0); Mean Corpuscular Volume 89.2 fL (80.0-98.0); Mean Platelet Volume 9.7 fL (9.4-12.4); Monocytes Absolute Auto 0.4 X10*3/uL (0.1-1.2); Monocytes Percent Auto 10.9 % (2-11); Neutrophils Absolute Auto 2.1 x10*3/uL (2.0-8.3); Neutrophils Percent Auto 52.9 % (45-73); Platelet Count 225 X10*3/uL (160-400); Red Blood Count 5.02 X10*6/uL (4.60-5.80); Red Cell Distribution Width 11.9 % (11.0-16.0)
[2024-05-29 10:44] LABS: Appearance Urine Clear; Color Urine Yellow; Glucose Urine UA Negative (Negative); Leukocyte Esterase Urine Negative (Negative); Nitrite Urine Negative (Negative); Urine Blood Negative (Negative); Urine Ketones Negative (Negative); Urine Protein Negative (Neg-Trace)
[2024-05-29 10:50] LABS: Alanine Aminotransferase 11 U/L (0-40); Albumin Level 4.3 g/dL (3.5-5.0); Alkaline Phosphatase 73 U/L (39-117); Anion Gap 11 (12-20); Aspartate Amino Transferase 18 U/L (5-37); Bilirubin Total 0.9 mg/dL (0.0-1.0); Blood Urea Nitrogen 12 mg/dL (9-16); Calcium 9.6 mg/dL (8.4-10.2); Carbon Dioxide 27 mmol/L (22-29); Chloride 107 mmol/L (96-108); Cholesterol 202 mg/dL (<200); Estimated Glomerular Filt Rate > 60; Glucose Fasting 84 mg/dL (60-99); HDL Cholesterol 42 mg/dL (>40); LDL Cholesterol Calculated 149 mg/dL (<100); Potassium 3.9 mmol/L (3.3-5.1); Sodium 141 mmol/L (135-145); Total Protein 7.2 g/dL (6.5-8.0); Triglycerides 57 mg/dL (<150)
[2024-05-29 11:06] LABS: TSH reflex Free T4 2.89 uIU/mL (0.32-4.0)
[2024-05-29 13:32] LABS: Prostate Specific Antigen Scr 1.22 ng/mL (<0.05-4.0)
== END 2024-05-29 09:09 | disposition home or self-care (01) ==
LOC: HO.HMGCLDS 09:08
PROVIDERS: PCP Nurse Practitioner Family; Visit Provider Nurse Practitioner Family
DX: Z00.00 Encounter for general adult medical examination without abnormal findings (principal); Z12.5 Encounter for screening for malignant neoplasm of prostate
CPT/HCPCS: 36415; 80053; 80061; 81003; 84153; 84443; 85025

== ENCOUNTER 2024-07-19 06:59 | Day surgery (SDC) | payer OTHER, SELFPAY ==
--- NOTE | 2024-07-18 09:04 | HO.ANESPROP2 ---
Documented by User: Destiny Ward NP 07/18/24 09:05 HPI - Anesthesia Eval Consult details Narrative: 63yo M for Colonoscopy PMFSH Active Problems Active Problems: All Active Problems Anxiety (Acute) Depression (Acute) Leukopenia (Acute) Chronic low back pain (Acute) Colon cancer screening (Acute) History of colon polyps (Acute) Physical exam (Acute) Screening for prostate cancer (Acute) Bradycardia (Acute) Dyslipidemia (Acute) Nephrolithiasis (Acute) Lumbar spine strain (Acute) Past Medical History Medical History Depression High cholesterol Family History Family history of problems with anesthesia: No Surgical History Surgical History H/O shoulder surgery H/O knee surgery H/O colonoscopy History of Problems with Anesthesia: No Social History Social History Housing: House Are you a primary wound care physician to a significant other at home: No Do you presently have visiting nurse or other home services: No Alcohol intake: never Patient Tobacco Use Status: Never used Tobacco e-Cigarette/Vaping Use: Never Used Second Hand Smoke Exposure: No Have you been hit, kicked, punched, or otherwise hurt by someone within the past year? 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 Current occupational exposures/hazards: No Cognitive needs: No Hearing needs: No Vision needs: No Meds Allergies Allergy/AdvReac Type Severity Reaction Status Date / Time No Known Allergies Allergy Verified 07/19/24 07:10 [No Known Allergies*] Assessment and Plan Assessment Anesthesia Assessment: Chart Reviewed Final Anesthetic Review Family History of Problems with Anesthesia: No History of Problems with Anesthesia: No Documented by User: Margaret Castillo MD 07/19/24 08:16 [facility] Past Medical History Medical History Depression High cholesterol Surgical History Surgical History H/O shoulder surgery H/O knee surgery H/O colonoscopy Social History Social History Housing: House Are you a primary wound care physician to a significant other at home: No Do you presently have visiting nurse or other home services: No Alcohol intake: never Patient Tobacco Use Status: Never used Tobacco e-Cigarette/Vaping Use: Never Used Second Hand Smoke Exposure: No Have you been hit, kicked, punched, or otherwise hurt by someone within the past year? 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 Current occupational exposures/hazards: No Cognitive needs: No Hearing needs: No Vision needs: No Meds Allergies Allergy/AdvReac Type Severity Reaction Status Date / Time No Known Allergies Allergy Verified 07/19/24 07:10 [No Known Allergies*] Exam Airway Mallampati Class: II TM Dist: >3cm Neck ROM: Full Heart: rrr Lungs: cta Assessment and Plan Assessment Anesthesia Assessment: Anesthesia Plan Discussed Final Anesthetic Review NPO: Yes ASA Class: II Final Preanesthetic Review: No Changes in Pt Med Stat, Meds/Allgs Chart Reviewed and Consent Obtained/Reviewed Patient Risk: Low Procedure Risk: Low Anesthetic Plan Anesthetic Plan: MAC: Disposition: Standard PACU
[2024-07-19 07:08] VITALS: BMI 22.5
[2024-07-19] MEDS: Lactated Ringers 1,000 ML 100 ML IVCONT (07:12)
[2024-07-19 07:20] VITALS: BP 123/63; PULSE 52; RESP 18; TEMP 36.7; O2SAT 98
--- NOTE | 2024-07-19 07:42 | MHC.SHP ---
Pre-Procedural Eval Section A - 24 Hr Update-Section A only Date of Service: 07/19/24 The patient is an INPATIENT: No The patient has been examined within 24 hours of the surgical procedure. The History & Physical has been completed within 30 days and I have reviewed it.: No Section B - Complete if H&P > 30 days Chief Complaint: Surveillance for colon polyps Relevant Family History (Specify if Yes): No Relevant Social History: None Present Medications: see Short Stay Collaborative assessment Medical History: Significant History (Depression High cholesterol) History of Previous Operations: Relevant previous surgery/procedure and date(s) (H/O shoulder surgery H/O knee surgery H/O colonoscopy) Allergies: Allergies Allergy/AdvReac Type Severity Reaction Status Date / Time No Known Allergies Allergy Verified 07/19/24 07:10 [No Known Allergies*] Review of Systems Sugical H&P ROS: Negative: Constitution, Cardiovascular, Respiratory and Gastrointestinal Exam Surgical H&P Exam: Normal: Heart, Normal: Lungs, Normal: Extremities and Normal: Abdomen Plan I have reviewed the history and physical and performed a pertinent physical examination on my patient. No changes have occurred unless specified. Time Spent With Patient Time: Total time managing care of this patient today ____ minutes.
[2024-07-19 09:00] VITALS: BP 104/73; PULSE 52; RESP 16; TEMP 36.6; O2SAT 98
--- NOTE | 2024-07-19 09:02 | HO.OPN-COLON ---
Colonoscopy Operative Note Operative Note Date of Service: 07/19/24 Narrative: COLONOSCOPY TILL CECUM WITH BIOPSIES AND SNARE POLYPECTOMY Pre-op diagnosis: Surveillance for colon polyps. Post-op diagnosis:? Colon polyps, Diverticulosis, hemorrhoids Endoscopist:? Arron Sadler MD Anesthesia:?MAC Consent: Indications for the procedure and potential complications of bleeding, perforation, reaction to medications and missed diagnosis were discussed with the patient and informed consent was obtained. Instrument: Olympus PCF H 190 L variable stiffness pediatric colonoscope Monitoring: Vital signs and clinical assessment, intermittent blood pressure monitoring, continuous EKG monitoring, Pulse oximetry and Carbon Dioxide monitoring were done throughout the procedure. Please see anesthesia flowsheet. Colon withdrawl time was 18 minutes. Procedure: The patient was placed in the left lateral decubitis position and pre-procedure medications were administered. After a digital rectal examination of the ano-rectum, the video colonoscope was inserted into the rectum and advanced through the colon to the cecum. The colonoscope was slowly withdrawn in a retrograde panoramic fashion and the colon mucosa was carefully examined including a retroflexed view of the rectum. Findings and interventions are described below. Procedure Difficulty: LLQ pressure was applied to intubate the cecum Findings: Terminal Ileum: Not evaluated Cecum: Normal Ascending Colon: Two 6-7 mm sessile polyps in the proximal AC - removed with a cold snare and a cold biopsy Polypectomy sites visualized in the proximal and distal AC without recurrent polyp Transverse Colon: Normal Descending Colon: Normal Sigmoid Colon: Moderate diverticulosis Rectum: Normal Ano-rectum: Moderate internal hemorrhoids Colon preparation: Good after copious irrigation. [place] Bowel Preparation Scale Right colon; 2 Transverse colon: 2 Left colon; 2 (0 = Unprepared colon segment with mucosa not seen due to solid stool that cannot be cleared. 1 = Portion of mucosa of the colon segment seen, but other areas of the colon segment not well seen due to staining, residual stool and/or opaque liquid. 2 = Minor amount of residual staining, small fragments of stool and/or opaque liquid, but mucosa of colon segment seen well. 3 = Entire mucosa of colon segment seen well with no residual staining, small fragments of stool or opaque liquid) Impression and Post Procedure Diagnosis: Colonoscopy Findings: Two small polyps were removed Moderate diverticulosis seen in the sigmoid colon Moderate hemorrhoids on retroflexed exam. Plan: Pt has a FU appointment on 08/01/[address] Sadler Repeat Colonoscopy in 3-5 years if polyps are adenomatous and due to a history of adenomatous colon polyps. Above findings were reviewed with the patient and relevant handouts were given and the discharge area.
[2024-07-19 09:15] VITALS: BP 126/61; PULSE 45; RESP 18; TEMP 36.1; O2SAT 100
== END 2024-07-19 09:43 | disposition home or self-care (01) ==
PROVIDERS: PCP Nurse Practitioner Family; Visit Provider Internal Medicine Gastroenterology
PROC: 0DJD8ZZ Inspection of Lower Intestinal Tract, Via Natural or Artificial Opening Endoscopic (ICD-10-PCS; CPT 45378; principal; 2024-07-19 08:30)
DX: Z12.11 Encounter for screening for malignant neoplasm of colon (principal); Z86.010 Personal history of colon polyps; D12.2 Benign neoplasm of ascending colon; K57.30 Diverticulosis of large intestine without perforation or abscess without bleeding; K64.8 Other hemorrhoids; E78.00 Pure hypercholesterolemia, unspecified; F32.A Depression, unspecified; Z98.890 Other specified postprocedural states
CPT/HCPCS: 45385; 45380; 88305; J2704

== ENCOUNTER → 2024-07-19 06:59 | Outpatient (BNV) | payer OTHER, SELFPAY | PROVIDERS: PCP Nurse Practitioner Family; Visit Provider Internal Medicine Gastroenterology | DX: Z12.11 Encounter for screening for malignant neoplasm of colon (principal); D12.2 Benign neoplasm of ascending colon; K57.30 Diverticulosis of large intestine without perforation or abscess without bleeding; K64.8 Other hemorrhoids | CPT/HCPCS: 45380; 45385 ==

== ENCOUNTER 2024-08-01 07:19 | Outpatient (AMB) | payer OTHER, SELFPAY ==
--- NOTE | 2024-08-01 07:22 | A.OFFVIS_ITS ---
Vital Signs 08/01/24 07:24 Height 5 ft 8 in Weight 149 lb BMI 22.7 BP 109/66 Blood Pressure Location Lt brachial Position Sitting Pulse 45 L Intake Visit Reasons: S/P [facility]; Dr. sadler Intake Note: Patient follow up for Colonoscopy results. Patient denies any GI issues. Coating Manager Required: No Accompanied by: Self / Same As Patient Allergies No Known Allergies [No Known Allergies*] Allergy (Verified 08/01/24 07:22) Medication List - Last Reconciled 08/01/24 by Arron Sadler MD atorvastatin 10 mg PO BEDTIME citalopram 20 mg PO DAILY 90 days HPI HPI S/P [facility]; Dr. sadler: Details: GI CLINIC VISIT FOR THIS 63-YEAR-OLD MALE FOR FU OF COLON POLYPS ??TODAY'S VISIT: Colon results reviewed C: He states that he is not on any medications and that he is eating different with better choices. No concerns at this time. He was taking medications for cholesterol and stopped taking them Trying to eat right and not drinking alcohol. Has lost some weight sinve he started intermittent fasting (fasts 16 hours) Colonoscopy results reviewed. Patient denies any problems after the colonoscopy ?Denies abdominal pain, heart[place]urn, dysphagia or constipation ? Patient had a colonoscopy in 2008 whch was normal per patient. ? Denies FHX CRC or polyps or GI malignancy. ? mother had skin cancer ? Admits ETOH use- once a week, summer time twice weekly with softball ? Denies exposure to HIV, Hep A,B,C or tuberculsis ? Denies cadriac issues or respiratory issues ? denies issues with anesthesia Colonoscopy results reviewed ? PATIENT DENIES KNOWN FAMILY HISTORY OF COLON POLYPS, OR OTHER GI MALIGNANCIES. Maternal GM had colon cancer in her 60's and had a colostomy bag and? 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 No recent CBC for review ? 03/08/20 STOOL FIT TEST WAS NEGATIVE. ? IMAGING STUDIES: NO RECENT GI IMAGING ?ENDOSCOPIC STUDIES:?07/19/2024 COLONOSCOPY SHOWED: Colonoscopy Findings: Two small polyps were removed Moderate diverticulosis seen in the sigmoid colon Moderate hemorrhoids on retroflexed exam. Plan: Repeat Colonoscopy in 3 years if polyps are adenomatous and due to a history of adenomatous colon polyps. 11/18/22 COLONOSCOPY SHOWED: Ascending Colon:? Three to four 5 to 10 mm polypoidal nodules noted at the site of past polypectomy in the proximal AC removed with a cold bx and a hot snare.? Polypectomy site was closed with 1 hemoclip (sessile serrated polyp on biopsy) A 2 cms flat polyp in the distal AC at 60 cms - raised with 5 cc of normal saline and removed with a hot snare. Transverse Colon:? A 10-12 mm sessile polyp - removed with a hot snare - (tubular adenoma on biopsies) Plan: Repeat Colonoscopy interval based on path results - in 18 months if polyps are adenomatous and due to a hx of multiple colon polyps 08/24/21 colonoscopy showed: Five medium to large sized polyps removed - 4?Sessile serrated polyps and 1 hyperplastic polyp Moderate hemorrhoids on retroflexed exam. Plan:? Patient has an appointment on 09/09/21 in the GI Clinic with Arron Sadler M.D.. Repeat Colonoscopy interval based on path results - in 1 year if polyps are adenomatous to check polypectomy sites in the right colon. ?? ? 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 Current occupational exposures/hazards: No Cognitive needs: No Hearing needs: No Vision needs: No Review of Systems Const All systems reviewed & are unremarkable except as noted in HPI and below Physical Exam Vital Signs: Last Vital Signs Pulse 45 L 08/01/24 07:24 BP 109/66 08/01/24 07:24 BMI result Body Mass Index 22.7 Const General: healthy appearing and no acute distress Nutritional Appearance: average body habitus Orientation/consciousness: patient oriented x3 Limitations: no limitations HEENT Head: Yes normal to inspection Ears: hearing grossly normal bilaterally Eyes Sclerae: sclerae normal Pupils: Equal, round and reactive pupils present Neck Neck: Yes normal visual inspection Chest Chest palpation & inspection: normal inspection of the chest Resp Effort & Inspection: normal respiratory effort Auscultation: clear to auscultation bilaterally Cardio Palpation: normal PMI Rate: regular rate Rhythm: regular rhythm Heart sounds: S1 normal heart sound present, S2 normal heart sound present and no murmurs GI Palpation (GI): Soft to palpation, nontender and No hepatosplenomegaly present Auscultation: normal bowel sounds Rectal Exam - Male: Yes deferred Skin General skin exam: no rashes or lesions noted Neuro General: patient oriented x3, gait normal and moves all extremities Cranial nerves: Yes Equal, round and reactive pupils present Psych Appearance: grossly normal Mental Status: mental status grossly normal Assessment & Plan Assessment & Plan (1) History of colon polyps: Comment: 08/2021 Four medium to large sized serrated polyps were removed. 11/2022 Repeat colonoscopy showed:Two medium sized polyps removed Three to four 5 to 10 mm polypoidal nodules noted at the site of past polypectomy in the proximal AC removed with a cold bx and a hot snare. Repeat colonoscopy is advised in 18 months 07/19/2024 COLONOSCOPY SHOWED: Colonoscopy Findings: Two small polyps were removed (Tubular adenomas on bx) Moderate diverticulosis seen in the sigmoid colon Moderate hemorrhoids on retroflexed exam. Plan: Repeat Colonoscopy in 3 years Code(s): Z86.010 - Personal history of colonic polyps Category: Medical Plan 63 YM without GI symptoms, denies known family history of colon polyps or colon cancer. Patient is at average risk for colon cancer. Past colonoscopy in 2008 was negative for colon polyps. Patient was scheduled for a colonoscopy on 02/27/2020 which was canceled due to COVID-19 pandemic. Patient was advised to have a stool fit test instead which was negative. 08/2021 Four medium to large sized serrated polyps were removed during colonoscopy 11/18/22 FU colonoscopy was performed in results as noted above 07/19/2024 COLONOSCOPY SHOWED: Colonoscopy Findings: Two small polyps were removed Moderate diverticulosis seen in the sigmoid colon Moderate hemorrhoids on retroflexed exam. Plan: Repeat Colonoscopy in 3 years if polyps are adenomatous and due to a history of adenomatous colon polyps. FU in 3 years - pt placed on colonoscopy recall list. Coding Level of Care Code Est Pt Level 3 (54906) Diagnoses History of colon polyps Z86.010 Time Spent (min) 15
[2024-08-01 07:24] VITALS: BP 109/66; PULSE 45; BMI 22.7
== END 2024-08-01 08:12 | disposition home or self-care (01) ==
PROVIDERS: PCP Nurse Practitioner Family; Visit Provider Internal Medicine Gastroenterology
DX: K57.30 Diverticulosis of large intestine without perforation or abscess without bleeding (principal); K64.8 Other hemorrhoids; D12.2 Benign neoplasm of ascending colon
CPT/HCPCS: 99213

== ENCOUNTER → 2024-08-01 07:19 | Outpatient (BNVA) | payer OTHER, SELFPAY | PROVIDERS: PCP Nurse Practitioner Family; Visit Provider Internal Medicine Gastroenterology | DX: Z86.010 Personal history of colon polyps (principal) | CPT/HCPCS: 99212 ==

== ENCOUNTER 2024-08-22 06:08 | Outpatient (REF) | payer OTHER, SELFPAY ==
[2024-08-22 10:08] LABS: MANUAL DIFF FLAG NO
[2024-08-22 10:12] LABS: Basophils Percent Auto 0.7 % (0-2); Eosinophils Absolute Auto 0.2 X10*3/uL (0.0-0.4); Eosinophils Percent Auto 3.5 % (0-4); Hematocrit 45.8 % (42.0-52.0); Hemoglobin 15.5 g/dl (14.0-18.0); Lymphocytes Absolute Auto 1.5 X10*3/uL (1.2-4.9); Lymphocytes Percent Auto 32.9 % (20-40); Mean Corpuscular HGB Conc 33.8 g/dl (31.0-36.0); Mean Corpuscular Hemoglobin 30.9 pg (27.0-33.0); Mean Corpuscular Volume 91.2 fL (80.0-98.0); Mean Platelet Volume 10.2 fL (9.4-12.4); Monocytes Absolute Auto 0.5 X10*3/uL (0.1-1.2); Monocytes Percent Auto 10.7 % (2-11); Neutrophils Absolute Auto 2.4 x10*3/uL (2.0-8.3); Neutrophils Percent Auto 52.2 % (45-73); Platelet Count 218 X10*3/uL (160-400); Red Blood Count 5.02 X10*6/uL (4.60-5.80); Red Cell Distribution Width 12.2 % (11.0-16.0); White Blood Count 4.6 X10*3/uL (4.8-10.8)
[2024-08-22 10:51] LABS: Alanine Aminotransferase 22 U/L (0-40); Albumin Level 4.1 g/dL (3.5-5.0); Alkaline Phosphatase 72 U/L (39-117); Anion Gap 9 (12-20); Aspartate Amino Transferase 21 U/L (5-37); Bilirubin Total 0.9 mg/dL (0.0-1.0); Blood Urea Nitrogen 14 mg/dL (9-16); Carbon Dioxide 30 mmol/L (22-29); Chloride 106 mmol/L (96-108); Cholesterol 165 mg/dL (<200); Estimated Glomerular Filt Rate > 60; Glucose Fasting 88 mg/dL (60-99); HDL Cholesterol 42 mg/dL (>40); LDL Cholesterol Calculated 111 mg/dL (<100); Potassium 3.9 mmol/L (3.3-5.1); Sodium 141 mmol/L (135-145); Total Protein 7.1 g/dL (6.5-8.0); Triglycerides 60 mg/dL (<150)
== END 2024-08-22 06:09 | disposition home or self-care (01) ==
LOC: HO.HMGCLDS 06:08
PROVIDERS: PCP Nurse Practitioner Family; Visit Provider Nurse Practitioner Family
DX: D72.819 Decreased white blood cell count, unspecified (principal); E78.5 Hyperlipidemia, unspecified
CPT/HCPCS: 36415; 80053; 80061; 85025

== ENCOUNTER 2025-06-23 14:44 | Outpatient (AMB) | payer MEDICARE, SELFPAY ==
[2025-06-23 14:56] VITALS: BP 128/78; PULSE 58; RESP 16; TEMP 36.9; O2SAT 96; BMI 22.5
--- NOTE | 2025-06-23 14:56 | A.OFFPC_ITS ---
Vital Signs 06/23/25 14:56 Height 5 ft 8 in Weight 148 lb BMI 22.5 BP 128/78 Blood Pressure Location Lt brachial Position Sitting Respiration 16 Pulse 58 Pulse Source Pulse Oximeter Temp 98.4 F Temp Source Oral Pulse Oximetry (%) 96 Oxygen Delivery Method Room Air Intake Visit Reasons: [facility] Information Security Systems Instructor Required: No Accompanied by: Self / Same As Patient Allergies No Known Allergies (No Known Allergies*) Allergy (Verified 06/23/25 14:57) Medication List - Last Reconciled 06/23/25 by EMERALD Lombardo-CLARA atorvastatin 10 mg PO BEDTIME citalopram 20 mg PO DAILY 90 days Tobacco use date assessed: 06/23/25 Fall risk assessment: No Falls in past year Last assessed Fall Risk: 06/23/25 Dental Screening Dental Screen Date: 06/23/25 Did you have a dental visit in the last 12 months?: Yes Did you have a dental problem in the last 6 months where you did not have access to dental care?: No Was dental information given to patient?: Patient has dentist HPI PE HPI Details History of Present Illness The patient is a 64-year-old male presenting with a physical exam. The patient reports experiencing tinnitus, which is a ringing in the ears. He mentioned that using a fan at night could help if it bothers him, but he usually has the TV on, which he has used to fall asleep since childhood, thus it does not bother him significantly. 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 Health Maintenance - Colonoscopy is up to date Social History - Exercise: Very competitive softball [address] [place], participates in multiple leagues Review of Systems - Cardiovascular: Denies chest pain, den ies shortness of breath - Gastrointestinal: Denies abdominal lissette n, denies blood in stool, denies constipation, denies diarrhea - Genitourinary: Denies urinary issues - Neurological: Reports tinnitus Physical Exam General: Cooperative, healthy appearing, comfortable, no acute distress and well developed Orientation: Patient oriented x3 Limitations: No limitations Head: Normal to inspection Ears: Hearing grossly normal bilaterally, but patient reports some tinnitus Nose: Normal external nose present Face and sinus: Normal facial exam Eyes: Appearance normal, both eyes and all related structures Neck: Normal visual inspection and Yes full ROM Respiratory: Normal respiratory effort and able to speak in complete sentences. Clear to auscultation bilaterally Cardiovascular: Regular rate and rhythm. Normal S1 and S2 GI: Normal to inspection. Soft to palpation and nontender : Testicles without masses/lesions and no hernias appreciated Skin: No rashes or lesions noted Neuro: Patient oriented x3 Extremities: Normal to inspection Results Plan The patient was advised to consider using a fan at night to help with tinnitus if it becomes bothersome, although he currently uses the TV to fall asleep, which seems to mitigate the issue. Patient Instructions - Consider using a fan at night to help with tinnitus if it becomes bothersome. 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 1. Little interest or pleasure in doing things: not at all 2. Feeling down, depressed, or hopeless: not at all 3. Trouble falling or staying asleep, or sleeping too much: not at all 4. Feeling tired or having little energy: not at all 5. Poor appetite or overeating: not at all 6. Feeling bad about yourself - or that you are a failure or have let yourself or your family down: not at all 7. Trouble concentrating on things, such as reading the newspaper or watching television: not at all 8. Moving or speaking so slowly that other people could have noticed. Or the opposite - being so fidgety or restless that you have been moving around a lot more than usual: not at all 9. Thoughts that you would be better off or of hurting yourself in some way: not at all Total score: 0 Depression Screening Interpretation: Negative Depression Screening Done: Yes [id number] - PHQ-9 Billing: Yes Source: Developed by Drs. Carlos Skinner, Brenda Haynes, Arsenio Pineda and colleagues, with an educational matthew from [employer]. Thrive Questionnaire Date Thrive assessed: 06/23/25 I am a: Patient What is your living situation today?: I have a steady place to live Within the past 12 months, did the food you bought not last and you didn't have the money to get more?: Never true Within the past 12 months, did you worry whether your food would run out before you got money to buy more?: Never true Do you have trouble paying for medicines?: No Do you have trouble getting transportation to medical appointments?: No Do you have trouble paying your heating and electricity bill?: No Do you have trouble taking care of your child, family member or friend?: No Do you have trouble with day-to-day activities such as bathing, preparing meals, shopping, managing finances, etc.?: No Are you currently unemployed and looking for a job?: No Are you interested in more education?: No Please select the resources that you would like help with: None Currently or been in a relationship where the following occur: No concerns reported THRIVE Score: 0 AUDIT C Alcohol Use Questionnaire (AUDIT-C) 1. How often do you have a drink containing alcohol?: Never 3. How often do you have six or more drinks on one occasion?: Never Total Score: 0 Score Reviewed/Action Taken: Yes CARLO-7 AMB Questionnaire CARLO-7 Date CARLO - 7 assessed: 06/23/25 Feeling nervous, anxious, or on edge: 0 = Not at all Not being able to stop or control worryin = Not at all Worrying too much about different things: 0 = Not at all Trouble relaxin = Not at all Being so restless that it is hard to sit still: 0 = Not at all Becoming easily annoyed or irritable: 0 = Not at all Feeling afraid as if something awful might happen: 0 = Not at all Total CARLO-7 score (0-4 normal; 5-9 mild; 10-14 moderate; 15-21 severe): 0 Source: Developed by Drs. Carlos Skinner, Brenda Haynes, Arsenio Pineda and colleagues, with an educational matthew from [employer]. CARLO-7 Assessment Billing CARLO-7 Assessment Tool: CARLO-7 Assessment 96190 Physical exam (Primary Care) Vital Signs: Last Vital Signs Temp 98.4 F 06/23/25 14:56 Pulse 58 06/23/25 14:56 Resp 16 06/23/25 14:56 BP 128/78 06/23/25 14:56 Pulse Ox 96 06/23/25 14:56 Oxygen Delivery Method Room Air 06/23/25 14:56 BMI result Body Mass Index 22.5 Tobacco/Smoking Status: Tobacco use Status Tobacco use date assessed 06/23/25 06/23/25 15:01 Patient Tobacco Use Status Never used Tobacco 06/23/25 15:01 e-Cigarette/Vaping Use Never Used 06/23/25 15:01 PHQ-9: PHQ-9 Score PHQ-9: Total score 0 06/23/25 15:01 Depression Screening Interpretation: Negative Thrive Assessment: Date of Thrive Assessment Date Thrive assessed 06/23/25 06/23/25 15:01 Currently or been in a relationship where the following occur: No concerns reported Coding Level of Care Code Est Pt Prev Care >65y(68503) Diagnoses Physical exam Z00.00 Screening for prostate cancer Z12.5 Additional Codes CARLO-7 Assessment Billing - CARLO-7 Assessment Tool: CARLO-7 Assessment 96703 ([id number]) PHQ-9 - 33367 - PHQ-9 Billing: Yes ([id number]) Assessment & Plan Assessment & Plan (1) Physical exam: Code(s): Z00.00 - Encounter for general adult medical examination without abnormal findings Category: Medical (2) Screening for prostate cancer: Code(s): Z12.5 - Encounter for screening for malignant neoplasm of prostate Category: Medical Plan . Orders: Orders Comprehensive [place]. Panel Fast Today Z00.00 - Encounter for general adult medical examination without abnormal findings TSH reflex Free T4 Today Z00.00 - Encounter for general adult medical examination without abnormal findings UA CC w/rflx Micro + Cult Today Z00.00 - Encounter for general adult medical examination without abnormal findings Lipid Panel Today Z00.00 - Encounter for general adult medical examination without abnormal findings Complete Blood Count Auto Diff Today Z00.00 - Encounter for general adult medical examination without abnormal findings Prostate Specific Antigen Scr Today Z12.5 - Encounter for screening for malignant neoplasm of prostate
== END 2025-06-23 16:20 | disposition home or self-care (01) ==
PROVIDERS: PCP Nurse Practitioner Family; Visit Provider Nurse Practitioner Family
DX: Z00.00 Encounter for general adult medical examination without abnormal findings (principal); Z12.5 Encounter for screening for malignant neoplasm of prostate

== ENCOUNTER → 2025-06-23 14:44 | Outpatient (BNVA) | payer MEDICARE, SELFPAY | PROVIDERS: PCP Nurse Practitioner Family; Visit Provider Nurse Practitioner Family | DX: Z00.00 Encounter for general adult medical examination without abnormal findings (principal) | CPT/HCPCS: 96127; 99397 ==

== ENCOUNTER 2025-06-24 08:34 | Outpatient (REF) | payer MEDICARE, SELFPAY ==
[2025-06-24 10:00] LABS: MANUAL DIFF FLAG NO
[2025-06-24 10:13] LABS: Appearance Urine Turbid; Glucose Urine UA Negative (Negative); PH 5.5 (5.0-9.0); Specific Gravity - Urine >= 1.030 (1.005-1.025); UMIC TRIGGER UACC YES
[2025-06-24 10:17] LABS: Hematocrit 42.8 % (42.0-52.0); Hemoglobin 15.0 g/dl (14.0-18.0); Imm Gran Abs Auto 0.00 X10*3/uL (0.00-0.03); Imm Gran Pct Auto 0.0 % (0.0-0.4); Lymphocytes Absolute Auto 1.2 X10*3/uL (1.2-4.9); Mean Corpuscular HGB Conc 35.0 g/dl (31.0-36.0); Mean Corpuscular Hemoglobin 31.1 pg (27.0-33.0); Mean Corpuscular Volume 88.6 fL (80.0-98.0); NRBC Abs Auto 0.000 X10*3/uL (0.0-0.012); NRBC Pct Auto 0.0 /100WBC (0.0-0.2); Platelet Count 204 X10*3/uL (160-400); Red Blood Count 4.83 X10*6/uL (4.60-5.80); White Blood Count 4.0 X10*3/uL (4.8-10.8)
[2025-06-24 11:33] LABS: Alanine Aminotransferase 21 U/L (0-40); Albumin Level 4.2 g/dL (3.5-5.0); Alkaline Phosphatase 88 U/L (39-117); Anion Gap 13 (12-20); Aspartate Amino Transferase 34 U/L (5-37); Blood Urea Nitrogen 18 mg/dL (9-16); Calcium 9.1 mg/dL (8.4-10.2); Carbon Dioxide 27 mmol/L (22-29); Chloride 105 mmol/L (96-108); Cholesterol 147 mg/dL (<200); Estimated Glomerular Filt Rate > 60; HDL Cholesterol 40 mg/dL (>40); Potassium 4.0 mmol/L (3.3-5.1); Sodium 141 mmol/L (135-145); Total Protein 7.1 g/dL (6.5-8.0); Triglycerides 58 mg/dL (<150)
== END 2025-06-24 08:35 | disposition home or self-care (01) ==
LOC: HO.HMGCLDS 08:34
PROVIDERS: PCP Nurse Practitioner Family; Visit Provider Nurse Practitioner Family
DX: Z00.00 Encounter for general adult medical examination without abnormal findings (principal); Z12.5 Encounter for screening for malignant neoplasm of prostate; Z13.6 Encounter for screening for cardiovascular disorders
CPT/HCPCS: 36415; 80053; 80061; 81001; 84153; 84443; 85025

== ENCOUNTER 2025-10-22 07:51 | Outpatient (AMB) | payer MEDICARE, SELFPAY ==
[2025-10-22 07:51] VITALS: BP 138/80; PULSE 64; O2SAT 95; BMI 22.8
--- NOTE | 2025-10-22 07:51 | MHC.OFFWIV ---
Intake Vital Signs 10/22/25 07:51 Height 5 ft 8 in Weight 150 lb BMI 22.8 BP 138/80 Blood Pressure Location Lt brachial Position Sitting Pulse 64 Pulse Source Pulse Oximeter Pulse Oximetry (%) 95 Oxygen Delivery Method Room Air Intake Visit Reasons: EP Pain in lt kidney/back, HX of kidney stones Intake Note: Patient presents c/o left kidney/back pain x3 weeks. Patient had kidney stone years ago, states it feels like that. Patient Tobacco Use Status: Never used Tobacco Allergies No Known Allergies (No Known Allergies*) Allergy (Verified 10/22/25 07:58) Do you need a note to return to daycare/school/sports/work: No HPI HPI Comments History of Present Illness Details This is a 65-year-old male with a past medical history of depression and hyperlipidemia presenting for evaluation of left-sided low back pain that he has had for the past 2 weeks. Patient denies any injury or trauma preceding the onset of his symptoms states the pain is achy in sensation and does not radiate. Patient denies having any urinary frequency, hematuria, dysuria or pain in his lower extremities. He has not taken any medication for treatment. Patient states 20 years ago he had a kidney stone that started off feeling this way. 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 Current occupational exposures/hazards: No Cognitive needs: No Hearing needs: No Vision needs: No Review of Systems Const All systems reviewed & are unremarkable except as noted in HPI and below Reports no additional complaints, Denies chills and Denies fever(s) GI Denies GI cramping, Denies diarrhea, Denies nausea and Denies vomiting Denies hematuria, Denies difficulty urinating, Denies dysuria, Denies flank pain, Denies urinary frequency, Denies urinary incontinence and Denies urinary urgency Musc Reports back pain Skin/Breast Reports system reviewed and no additional complaints, except as documented Neuro Reports no additional complaints Psych Reports no additional complaints Endo Reports no additional complaints Darwin/Lymph Reports no additional complaints Aller/Immun Reports no additional complaints Physical Exam Vital Signs: Last Vital Signs Pulse 64 10/22/25 07:51 BP 138/80 10/22/25 07:51 Pulse Ox 95 10/22/25 07:51 Oxygen Delivery Method Room Air 10/22/25 07:51 BMI result Body Mass Index 22.8 Const General: cooperative, healthy appearing, comfortable, no acute distress, well developed, alert, awake and Physically active; No ill appearing or lethargic Nutritional Appearance: average body habitus Orientation/consciousness: patient oriented x3 and No lethargic Limitations: no limitations General: Yes no CVA tenderness Back/Spine/Pelvis Back: no CVA tenderness Thoracic/Lumbar Spine: thoracic and lumbar spine normal to inspection, paraspinal muscle tenderness on the left in the mid lumbar and in the lower lumbar, No thoracic spinal tenderness, No lumbar spinal tenderness and No straight leg raise positive Sacroiliac joints: bilaterally nontender Skin General skin exam: no rashes or lesions noted Neuro General: patient oriented x3 Psych Appearance: grossly normal Mental Status: mental status grossly normal Insight: Good insight present (Psych) Judgement: Good judgement present (Psych) Results AMB Urinalysis, Automated UA Leukoctes 0 Hollie/uL Last Edit by Thuy Bailey CMA on 10/22/25 08:08 UA Nitrite Negative Last Edit by Thuy Bailey CMA on 10/22/25 08:08 UA Urobilinogen 0.2 mg/dL Last Edit by Thuy Bailey CMA on 10/22/25 08:08 UA Protein 0 mg/dL Last Edit by Thuy Bailey CMA on 10/22/25 08:08 UA pH 7.0 Last Edit by Thuy Bailey CMA on 10/22/25 08:08 UA Blood 0 Marc/uL Last Edit by Thuy Bailey CMA on 10/22/25 08:08 UA Specific Knox 1.010 Last Edit by Thuy Bailey CMA on 10/22/25 08:08 UA Ketone Negative Last Edit by Thuy Bailey CMA on 10/22/25 08:08 UA Bilirubin 0 mg/dL Last Edit by Thuy Bailey CMA on 10/22/25 08:08 UA Glucose 0 mg/dL Last Edit by Thuy Bailey CMA on 10/22/25 08:08 Results Reviewed Results Reviewed: Laboratory Last Values Urine pH (Auto) 7.0 10/22/25 08:04 Specific Knox (Auto) 1.010 10/22/25 08:04 Urine Protein (Auto) 0 mg/dL 10/22/25 08:04 Glucose (UA)(Auto) 0 mg/dL 10/22/25 08:04 Urine Ketones (Auto) Negative 10/22/25 08:04 Urine Blood (Auto) 0 Marc/uL 10/22/25 08:04 Urine Nitrite (Auto) Negative 10/22/25 08:04 Urine Bilirubin (Auto) 0 mg/dL 10/22/25 08:04 Urine Urobilinogen (Auto) 0.2 mg/dL 10/22/25 08:04 Leukocyte Esterase (Auto) 0 Hollie/uL 10/22/25 08:04 Urinalysis reviewed Assessment & Plan Assessment & Plan (1) Lumbar pain: Comment: Patient's urinalysis is reviewed; there is no hematuria or evidence of an acute urinary tract infection. Code(s): M54.50 - Low back pain, unspecified Plan: Naprosyn 500 mg b.i.d. times 7-10 days. Patient will return for any worsening symptoms. Orders: Orders AMB Urinalysis Automated Today Carmel Nelson PA-C Z13.9 - Encounter for screening, unspecified Medications: New naproxen (Naprosyn) 500 mg PO BID 20 tabs 0RF Margaret Parks PA-C Coding Level of Care Code Est Pt Level 3 (77523) Diagnoses Lumbar pain M54.50
== END 2025-10-22 08:22 | disposition home or self-care (01) ==
PROVIDERS: PCP Nurse Practitioner Family; Visit Provider Physician Assistant
DX: Z13.9 Encounter for screening, unspecified (principal); M54.50 Low back pain, unspecified

== ENCOUNTER → 2025-10-22 07:51 | Outpatient (BNVA) | payer MEDICARE, SELFPAY | PROVIDERS: PCP Nurse Practitioner Family; Visit Provider Physician Assistant | DX: M54.50 Low back pain, unspecified (principal) | CPT/HCPCS: 81003; 99212 ==